=== PATIENT | female | born 1970 | race Caucasian/White ===

== ENCOUNTER → 2017-02-04 | Outpatient (CLI) | payer BC ==
--- NOTE | 2017-02-04 11:32 | XR ---
EXAMINATION TYPE: XR foot complete LT DATE OF EXAM: 02/04/2017 COMPARISON: NONE HISTORY: Left foot pain, swelling TECHNIQUE: Three-view left foot FINDINGS: Mild hallux valgus deformity is present. No acute fractures are evident. Joint spaces are p reserved. Soft tissues are within normal limits. Tiny plantar calcaneal heel spur is present. IMPRESSION: 1. No acute osseous abnormality.
== END | disposition home or self-care (01) ==
LOC: RADXRMAIN 10:41
PROVIDERS: ATTEND Family Medicine
DX: M79.672 Pain in left foot (principal)

== ENCOUNTER 2017-03-23 09:19 | Day surgery (SDC) | payer BC ==
[2017-03-18 09:25] VITALS: BMI 50.9
--- NOTE | 2017-03-23 08:59 | P.GSHP ---
History of Present Illness H&P Date: 03/23/17 CHIEF COMPLAINT: Colon screen HISTORY OF PRESENT ILLNESS: The patient is a 46-year-old female who presents for colon screen. Lower endoscopy was offered for further evaluation and management. PAST MEDICAL HISTORY: Please see list. PAST SURGICAL HISTORY: Please see list. MEDICATIONS: Please see list. ALLERGIES: Please see list. SOCIAL HISTORY: No illicit drug use FAMILY HISTORY: No reports of Crohn disease or ulcerative colitis. REVIEW OF ORGAN SYSTEMS: CONSTITUTIONAL: No reports of fevers or chills. PHYSICAL EXAM: VITAL SIGNS: Stable GENERAL: Well-developed pleasant in no acute distress. HEENT: No scleral icterus. Extraocular movements grossly intact. Moist buccal mucosa. NECK: Supple without lymphadenopathy. CHEST: Unlabored respirations. Equal bilateral excursions. CARDIOVASCULAR: Regular rate and rhythm. Distal 2+ pulses. ABDOMEN: Soft, nontender, nondistended. MUSCULOSKELETAL: No clubbing, cyanosis, or edema. ASSESSMENT: 1. Colon screen. PLAN: 1. Recommend proceeding with a lower endoscopy Past Medical History Past Medical History: GERD/Reflux, Hyperlipidemia, Hypertension, Sleep Apnea/ CPAP/BIPAP Additional Past Medical History / Comment(s): USES CPAP MACHINE History of Any Multi-Drug Resistant Organisms: None Reported Past Surgical History: Appendectomy, Hysterectomy, Tonsillectomy, Uterine Ablation Additional Past Surgical History / Comment(s): D&C. COLONOSCOPY Past Anesthesia/Blood Transfusion Reactions: No Reported Reaction Smoking Status: Former smoker - Past Family History Mother Additional Family Medical History / Comment(s): DIES FROM ANEURYSM Father Family Medical History: Pulmonary Embolus Medications and Allergies Home Medications Medication Instructions Recorded Confirmed Type Metoprolol Tartrate [Lopressor] 1 tab PO QAM 03/08/16 03/18/17 History Pravastatin Sodium [Pravachol] 80 mg PO HS 03/08/16 03/18/17 History amLODIPine [Norvasc] 1 tab PO QAM 03/08/16 03/18/17 History Triamterene-Hctz 37.5-25Mg 1 tab PO DAILY 03/10/16 03/18/17 History [Dyazide 37.5-25 Capsule] Omeprazole 40 mg PO DAILY #30 capsule. 03/23/16 03/18/17 Rx Allergies Allergy/AdvReac Type Severity Reaction Status Date / Time varenicline [From Chantix] Allergy Rash/Hives Verified 03/18/17 09:34
[~2017-03-23 09:19] MED LIST: LACTATED RINGERS 1,000 ML IV SCH; LIDOCAINE 1% 20 ML VIAL (10MG/ML) FOR IV START INTRADERMA PRN
[2017-03-23 10:24] VITALS: TEMP 97.8
[2017-03-23] MEDS ORDERED: LIDOCAINE 1% INJ 10MG/ML (20 ML MDV) ONE (10:52)
[2017-03-23] MEDS ORDERED: PROPOFOL 10 MG/ML 20 ML VIAL IV ONE (10:52)
--- NOTE | 2017-03-23 11:09 | P.PCN ---
Date of Procedure: 03/23/17 Description of Procedure: PREOPERATIVE DIAGNOSIS: Colonoscopy screening. Personal history of colon polyps. POSTOPERATIVE DIAGNOSIS: Colonoscopy screening. Personal history of colon polyps. External hemorrhoids, grade 2. OPERATION: Colonoscopy to the ileocecal valve and appendiceal orifice. SURGEON: Kalani Long MD. ANESTHESIA: MAC. INDICATIONS: The patient is a 63-year-old female who presents for colonoscopy screening. Last colonoscopy was 1 year ago with multiple high risk colon polyps removed. Benefits and risks were described and informed consent was obtained. DESCRIPTION OF PROCEDURE: The patient had undergone Gatorade, MiraLAX and Dulcolax prep. She had been brought into the operating room and laid in the left lateral decubitus position. After adequate intravenous sedation, the rectum was examined with 2% lidocaine jelly. External hemorrhoids were encountered. The rectal tone was within normal limits. No lesions were palpated in the rectal vault. An Olympus colonoscope was advanced until the ileocecal valve and appendiceal orifice were clearly viewed. The prep was excellent with clear visualization of the mucosal folds. The scope was removed with visualization of each mucosal fold. No large scattered diverticulosis was encountered. No colonic polyps were found. No evidence of focal colitis was found. Retroflexion of the scope demonstrated grade 1 internal hemorrhoids without active bleeding or inflammation. The colon was desufflated. The patient had tolerated the procedure well. Withdrawal time was over 6 minutes. FINDINGS: Internal hemorrhoids, grade 1 External prolapsed hemorrhoids. No arteriovenous malformations. No adenomatous polyps. No focal colitis. RECOMMENDATIONS: Lower endoscopy in 5 years, 2021 per screening guidelines. Plan - Discharge Summary New Discharge Prescriptions: No Action amLODIPine [Norvasc] 1 tab PO QAM Metoprolol Tartrate [Lopressor] 1 tab PO QAM Pravastatin Sodium [Pravachol] 80 mg PO HS Triamterene-Hctz 37.5-25Mg [Dyazide 37.5-25 Capsule] 1 tab PO DAILY Omeprazole 40 mg PO DAILY #30 capsule.dr Discharge Medication List Metoprolol Tartrate [Lopressor] 1 tab PO QAM 03/08/16 [History] Pravastatin Sodium [Pravachol] 80 mg PO HS 03/08/16 [History] amLODIPine [Norvasc] 1 tab PO QAM 03/08/16 [History] Triamterene-Hctz 37.5-25Mg [Dyazide 37.5-25 Capsule] 1 tab PO DAILY 03/10/16 [ History] Omeprazole 40 mg PO DAILY #30 capsule. 03/23/16 [Rx]
[2017-03-23 11:30] VITALS: BP 111/68; PULSE 62; RESP 18
== END 2017-03-23 11:41 | disposition home or self-care (01) ==
LOC: ORWHC2ENDO 09:19
PROVIDERS: ATTEND Surgery Plastic and Reconstructive Surgery
DX: Z12.11 Encounter for screening for malignant neoplasm of colon (principal); Z86.010 Personal history of colon polyps; K64.4 Residual hemorrhoidal skin tags; K64.0 First degree hemorrhoids; K21.9 Gastro-esophageal reflux disease without esophagitis; E78.5 Hyperlipidemia, unspecified; I10 Essential (primary) hypertension; G47.33 Obstructive sleep apnea (adult) (pediatric); Z99.89 Dependence on other enabling machines and devices; Z87.891 Personal history of nicotine dependence; E66.01 Morbid (severe) obesity due to excess calories; Z68.43 Body mass index [BMI] 50.0-59.9, adult; Z79.82 Long term (current) use of aspirin; Z79.899 Other long term (current) drug therapy; Z88.8 Allergy status to other drugs, medicaments and biological substances
CPT/HCPCS: J2001; J2704; G0105; 45378

== ENCOUNTER → 2017-12-23 | Outpatient (CLI) | payer BC ==
--- NOTE | 2017-12-27 13:31 | MM ---
Reason for exam: screening (asymptomatic). Last mammogram was performed 2 years and 2 months ago. History: Patient is postmenopausal. Physical Findings: A clinical breast exam by your physician is recommended on an annual basis and results should be correlated with mammographic findings. MG Screening Mammo w CAD Bilateral CC and MLO view(s) were taken. XCCL view(s) were taken of the left breast. Prior study comparison: October 10, 2015, mammogram. February 27, 2013, mammogram. There are scattered fibroglandular densities. There is no discrete abnormality. ASSESSMENT: Negative, BI-RAD 1 RECOMMENDATION: Routine screening mammogram of both breasts in 1 year.
== END | disposition home or self-care (01) ==
LOC: RADMAMWWP 10:19
PROVIDERS: ATTEND Family Medicine
DX: Z12.31 Encounter for screening mammogram for malignant neoplasm of breast (principal)
CPT/HCPCS: 77067

== ENCOUNTER → 2018-08-04 | Outpatient (CLI) | payer BC ==
--- NOTE | 2018-08-04 10:28 | XR ---
EXAMINATION TYPE: XR chest 2V DATE OF EXAM: 08/04/2018 COMPARISON: NONE HISTORY: Acute bronchitis per order. TECHNIQUE: Frontal and lateral views of the chest are obtained. FINDINGS: Slightly elevated left hemidiaphragm is seen. Central perihilar peribronchial cuffing is n oted. There is no focal air space opacity, pleural effusion, or pneumothorax seen. The cardiac silho uette size is within normal limits. The osseous structures are intact. IMPRESSION: No suspicious acute infiltrate. Central perihilar peribronchial cuffing is consistent wi th reactive airway disease possibly from a viral bronchiolitis. Correlate clinically.
== END | disposition home or self-care (01) ==
LOC: RADXRMAIN 10:02
PROVIDERS: ATTEND Family Medicine
DX: J20.9 Acute bronchitis, unspecified (principal)
CPT/HCPCS: 71046

== ENCOUNTER → 2019-06-19 | Outpatient (CLI) | payer BC ==
--- NOTE | 2019-06-20 07:36 | US ---
EXAMINATION TYPE: US mass soft tissue chest/back DATE OF EXAM: 06/19/2019 COMPARISON: NONE CLINICAL HISTORY: R07.81 Pleurodynia. Lump left mid flank TECHNIQUE/FINDINGS: Targeted grayscale and color imaging were performed of the left flank in the area of the palpable abnormality. Scanned within area of concern, left flank. At the palpable abnormality there is a hyperechoic vascul ar area noted = 1.9 x 1.0 x 2.1cm. This has somewhat ill-defined borders. IMPRESSION: Hyperechoic 2.1 cm mass within the left flank at the area of palpable abnormality. Given the hypervas cularity and ill-defined borders and enhanced MRI is recommended to assess for any abnormal enhanceme nt that would suggest liposarcoma rather than lipoma.
== END | disposition home or self-care (01) ==
LOC: RADUSWWP 16:11
PROVIDERS: ATTEND Family Medicine
DX: R22.2 Localized swelling, mass and lump, trunk (principal); R07.81 Pleurodynia

== ENCOUNTER → 2019-07-12 | Outpatient (CLI) | payer BC | END | disposition home or self-care (01) | LOC: RADMRIMAIN 15:56 | PROVIDERS: ATTEND Family Medicine | DX: Z53.9 Procedure and treatment not carried out, unspecified reason (principal) ==

== ENCOUNTER 2020-04-02 08:57 | Day surgery (SDC) | payer BC, OTHER ==
[2020-03-28 12:22] VITALS: BMI 51.7
--- NOTE | 2020-04-02 08:46 | P.GSHP ---
History of Present Illness H&P Date: 04/02/20 CHIEF COMPLAINT: GERD and colon screen HISTORY OF PRESENT ILLNESS: The patient is a 50-year-old female who presents with gastroesophageal reflux disease and need for colon screen. Upper and lower endoscopy were offered for further evaluation and management. PAST MEDICAL HISTORY: Please see list. PAST SURGICAL HISTORY: Please see list. MEDICATIONS: Please see list. ALLERGIES: Please see list. SOCIAL HISTORY: No illicit drug use FAMILY HISTORY: No reports of Crohn disease or ulcerative colitis. REVIEW OF ORGAN SYSTEMS: CONSTITUTIONAL: No reports of fevers or chills. GI: Denies any blood in stools or constipation. PHYSICAL EXAM: VITAL SIGNS: Stable GENERAL: Well-developed pleasant in no acute distress. HEENT: No scleral icterus. Extraocular movements grossly intact. Moist buccal mucosa. NECK: Supple without lymphadenopathy. CHEST: Unlabored respirations. Equal bilateral excursions. CARDIOVASCULAR: Regular rate and rhythm. Distal 2+ pulses. ABDOMEN: Soft, nondistended. MUSCULOSKELETAL: No clubbing, cyanosis, or edema. ASSESSMENT: 1. Gastroesophageal reflux disease 2. Colon screen. PLAN: 1. Recommend proceeding with an upper and lower endoscopy Past Medical History Past Medical History: GERD/Reflux, Hyperlipidemia, Hypertension, Musculoskeletal Disorder, Sleep Apnea/CPAP/BIPAP Additional Past Medical History / Comment(s): USES CPAP MACHINE, hx. numerous colon polyps History of Any Multi-Drug Resistant Organisms: None Reported Past Surgical History: Appendectomy, Hysterectomy, Tonsillectomy, Uterine Ablation Additional Past Surgical History / Comment(s): D&C. COLONOSCOPY Past Anesthesia/Blood Transfusion Reactions: No Reported Reaction Smoking Status: Former smoker - Past Family History Mother Additional Family Medical History / Comment(s): DIES FROM ANEURYSM Father Family Medical History: Pulmonary Embolus Medications and Allergies Home Medications Medication Instructions Recorded Confirmed Type Metoprolol Tartrate [Lopressor] 50 mg PO BID 03/08/16 03/28/20 History Pravastatin Sodium [Pravachol] 80 mg PO HS 03/08/16 03/28/20 History amLODIPine [Norvasc] 10 mg PO QAM 03/08/16 03/28/20 History Omeprazole 40 mg PO DAILY #30 capsule. 03/23/16 03/28/20 Rx Cholecalciferol [Vitamin D3 (25 1,000 unit PO DAILY 03/28/20 03/28/20 History Mcg = 1000 Iu)] Psyllium Husk [Metamucil] 0.4 gm PO DAILY 03/28/20 03/28/20 History Vitamin B Complex 1 each PO DAILY 03/28/20 03/28/20 History Allergies Allergy/AdvReac Type Severity Reaction Status Date / Time varenicline [From Chantix] Allergy Rash/Hives Verified 03/28/20 11:56
[~2020-04-02 08:57] MED LIST changes: -LIDOCAINE 1% 20 ML VIAL (10MG/ML) FOR IV START INTRADERMA PRN; +MIDAZOLAM 2 MG/2 ML VIAL IV PRN; +ONDANSETRON 4 MG/2 ML VIAL IVP PRN
[2020-04-02] MEDS ORDERED: LACTATED RINGERS 1,000 ML IV ONE (09:25)
[2020-04-02 09:35] VITALS: TEMP 97.8
[2020-04-02] MEDS ORDERED: LIDOCAINE 1% (10MG/ML) FOR IV START INTRADERMA ONE (09:37)
[2020-04-02] MEDS ORDERED: GLYCOPYRROLATE 0.2 MG/ML 2 ML VIAL ONE (09:45)
[2020-04-02] MEDS ORDERED: LIDOCAINE 1% INJ 10MG/ML (20 ML MDV) ONE (09:45)
[2020-04-02] MEDS ORDERED: PROPOFOL 10 MG/ML 20 ML VIAL IV ONE (09:45)
[2020-04-02] MEDS ORDERED: KETAMINE 10 MG/ML 20 ML VIAL ONE (09:45)
--- NOTE | 2020-04-02 10:12 | P.PCN ---
Date of Procedure: 04/02/20 Description of Procedure: PREOPERATIVE DIAGNOSIS: Gastroesophageal reflux disease. Morbid obesity. POSTOPERATIVE DIAGNOSIS: Morbid obesity. Gastritis. Gastroesophageal reflux disease. Diaphragmatic hiatal hernia OPERATION: Esophagogastroduodenoscopy with biopsies along antrum. SURGEON: Kalani Long MD ANESTHESIA: MAC. INDICATIONS: The patient is a 50-year-old female who presents with a history of reflux disease. Benefits and risks of the procedure were described. Informed consent was obtained. DESCRIPTION: The patient was brought into the endoscopy suite and laid in the left lateral decubitus position. An Olympus gastroscope was passed along the posterior oropharynx down to the distal esophagus where the squamocolumnar junction was encountered at 40 cm from the incisors. The stomach was entered and no bile reflux was found. Additional findings are listed below. Biopsies with cold f orceps were obtained of the antrum. The first through third portion of the duodenum was examined. Retroflexion of the scope confirmed Hill grade 4 lower esophageal valve. The squamocolumnar junction demonstrated LA grade B erosive esophagitis. The stomach was desufflated. The patient tolerated the procedure well. FINDINGS: Squamocolumnar junction 40 cm from the incisors. Diaphragmatic hiatus at 45 cm. Hiatal hernia, 5 cm Hill grade 4 lower esophageal valve. LA grade B erosive esophagitis. Active duodenitis. Chronic gastritis RECOMMENDATIONS: Upper endoscopy as needed.
--- NOTE | 2020-04-02 10:19 | P.PCN ---
Date of Procedure: 04/02/20 Description of Procedure: PREOPERATIVE DIAGNOSIS: Colonoscopy screening POSTOPERATIVE DIAGNOSIS: Tubular adenoma transverse colon Sigmoid diverticulosis Internal hemorrhoids, grade 2 OPERATION: Colonoscopy to the ileocecal valve and appendiceal orifice, cecum Colonoscopy with hot snare polypectomy Colonoscopy with cold forceps biopsies SURGEON: Kalani Long MD. ANESTHESIA: MAC. INDICATIONS: The patient is an 50-year-old female who presents . for colonoscopy screening. Benefits and risks were described and informed consent was obtained. DESCRIPTION OF PROCEDURE: The patient had undergone Suprep. She had been brought into the operating room and laid in the left lateral decubitus position. After adequate intravenous sedation, the rectum was examined with 2% lidocaine jelly. The prostate was unremarkable. External hemorrhoids were encountered. The rectal tone was within normal limits. No lesions were palpated in the rectal vault. An Olympus colonoscope was advanced until the cecum, ileocecal valve and appendiceal orifice were clearly viewed. The prep was excellent. Sigmoid diverticulosis was encountered. Transverse colon polyp was snare polypectomy. No evidence of focal colitis was found. Retroflexion of the scope demonstrated grade 2 internal hemorrhoids without active bleeding or inflammation. The colon was desufflated. The patient had tolerated the procedure well. Withdrawal time was over 6 minutes. FINDINGS: Aronchick preparation quality scale 1 (1-5) Internal hemorrhoids, grade 3 External hemorrhoids, grade 3. No arteriovenous malformations. Sigmoid diverticulosis Removal of 1 polyp: - Snare polypectomy proximal transverse colon, 8 mm tubulovillous adenoma polyp. No focal colitis. RECOMMENDATIONS: Repeat colonoscopy 2 years, 2021 Plan - Discharge Summary Discharge Rx Participant: No New Discharge Prescriptions: Continue amLODIPine [Norvasc] 10 mg PO QAM Metoprolol Tartrate [Lopressor] 50 mg PO BID Pravastatin Sodium [Pravachol] 80 mg PO HS Omeprazole 40 mg PO DAILY #30 capsule. Cholecalciferol [Vitamin D3 (25 Mcg = 1000 Iu)] 1,000 unit PO DAILY Vitamin B Complex 1 each PO DAILY Psyllium Husk [Metamucil] 0.4 gm PO DAILY Discharge Medication List Metoprolol Tartrate [Lopressor] 50 mg PO BID 03/08/16 [History] Pravastatin Sodium [Pravachol] 80 mg PO HS 03/08/16 [History] amLODIPine [Norvasc] 10 mg PO QAM 03/08/16 [History] Omeprazole 40 mg PO DAILY #30 capsule. 03/23/16 [Rx] Cholecalciferol [Vitamin D3 (25 Mcg = 1000 Iu)] 1,000 unit PO DAILY 03/28/20 [History] Psyllium Husk [Metamucil] 0.4 gm PO DAILY 03/28/20 [History] Vitamin B Complex 1 each PO DAILY 03/28/20 [History] Follow up Appointment(s)/Referral(s): Kalani Long MD [STAFF PHYSICIAN] - 04/15/20 Patient Instructions/Handouts: Colorectal Polyps (GEN), Diverticulosis Diet (GEN), Diverticulosis (ED), Hemorrhoids (DC) Activity/Diet/Wound Care/Special Instructions: Repeat colonoscopy 2 years, 2021 Discharge Disposition: HOME SELF-CARE
[2020-04-02 11:27] VITALS: BP 131/68; PULSE 88; RESP 16
== END 2020-04-02 11:03 | disposition home or self-care (01) ==
LOC: ORWHC2ENDO 08:57
PROVIDERS: ATTEND Surgery Plastic and Reconstructive Surgery
DX: Z12.11 Encounter for screening for malignant neoplasm of colon (principal); K63.5 Polyp of colon; K57.30 Diverticulosis of large intestine without perforation or abscess without bleeding; K29.50 Unspecified chronic gastritis without bleeding; K64.1 Second degree hemorrhoids; K64.4 Residual hemorrhoidal skin tags; E66.01 Morbid (severe) obesity due to excess calories; K44.9 Diaphragmatic hernia without obstruction or gangrene; K21.00 Gastro-esophageal reflux disease with esophagitis, without bleeding; K22.10 Ulcer of esophagus without bleeding; K29.80 Duodenitis without bleeding; I10 Essential (primary) hypertension; E78.5 Hyperlipidemia, unspecified; G47.33 Obstructive sleep apnea (adult) (pediatric); Z79.899 Other long term (current) drug therapy; Z88.8 Allergy status to other drugs, medicaments and biological substances; Z99.89 Dependence on other enabling machines and devices; Z87.891 Personal history of nicotine dependence; Z90.710 Acquired absence of both cervix and uterus; Z90.49 Acquired absence of other specified parts of digestive tract; Z98.890 Other specified postprocedural states; Z86.010 Personal history of colon polyps; Z82.49 Family history of ischemic heart disease and other diseases of the circulatory system; Z68.43 Body mass index [BMI] 50.0-59.9, adult
CPT/HCPCS: 88305; 45385; 43239; J2001; J2704

== ENCOUNTER 2020-04-21 06:21 | Day surgery (SDC) | payer BC, OTHER ==
[2020-04-18 09:22] VITALS: BMI 51.7
--- NOTE | 2020-04-21 05:04 | P.GSHP ---
History of Present Illness H&P Date: 04/21/20 CHIEF COMPLAINT: Back mass HISTORY OF PRESENT ILLNESS: The patient is a 50 year-old female with history of mass along the left upper back. She presents today for surgical excision. PAST MEDICAL HISTORY: Please see list. PAST SURGICAL HISTORY: Please see list. MEDICATIONS: Please see list. ALLERGIES: Please see list. SOCIAL HISTORY: Please see list. FAMILY HISTORY: No reports of Crohn disease or ulcerative colitis. REVIEW OF ORGAN SYSTEMS: CONSTITUTIONAL: No reports of fevers or chills. GI: Denies any blood in stools or constipation. PHYSICAL EXAM: VITAL SIGNS: Stable Musculoskeletal: No clubbing cyanosis or edema SKIN: Left upper back lesion 3 cm GENERAL: Well developed and in no acute distress. Pleasant. HEENT: No sclera icterus. Extraocular movements grossly intact. Moist buccal mucosa. Head is atraumatic, normocephalic. Hears conversational speech. No nasal drainage. NECK: Supple without lymphadenopathy. No JV distention. CHEST: Non-labored respirations and equal bilateral excursions. CARDIOVASCULAR: Regular rate and rhythm. Palpable 2+ radial pulses. ABDOMEN: Soft. Non-tender. Nondistended. NEUROLOGIC: No focal or lateralizing signs. PSYCH: Appropriate affect. Alert and oriented to person, place and time. ASSESSMENT: 1. Left upper back mass PLAN: 1. Will proceed of excision of subcutaneous tumor along the back. 2. DVT prophylaxis. 3. Antibiotic prophylaxis. 4. Time of recovery, at least one week. Past Medical History Past Medical History: GERD/Reflux, Hyperlipidemia, Hypertension, Musculoskeletal Disorder, Sleep Apnea/CPAP/BIPAP Additional Past Medical History / Comment(s): USES CPAP MACHINE, hx. numerous colon polyps History of Any Multi-Drug Resistant Organisms: None Reported Past Surgical History: Appendectomy, Hysterectomy, Tonsillectomy, Uterine Ablation Additional Past Surgical History / Comment(s): D&C. COLONOSCOPY/EGD Past Anesthesia/Blood Transfusion Reactions: No Reported Reaction Smoking Status: Former smoker - Past Family History Mother Additional Family Medical History / Comment(s): DIES FROM ANEURYSM Father Family Medical History: Pulmonary Embolus Medications and Allergies Home Medications Medication Instructions Recorded Confirmed Type Metoprolol Tartrate [Lopressor] 50 mg PO BID 03/08/16 04/18/20 History Pravastatin Sodium [Pravachol] 80 mg PO HS 03/08/16 04/18/20 History amLODIPine [Norvasc] 10 mg PO QAM 03/08/16 04/18/20 History Omeprazole 40 mg PO DAILY #30 capsule. 03/23/16 04/18/20 Rx Cholecalciferol [Vitamin D3 (25 1,000 unit PO DAILY 03/28/20 04/18/20 History Mcg = 1000 Iu)] Psyllium Husk [Metamucil] 0.4 gm PO DAILY 03/28/20 04/18/20 History Vitamin B Complex 1 each PO DAILY 03/28/20 04/18/20 History Allergies Allergy/AdvReac Type Severity Reaction Status Date / Time varenicline [From Chantix] Allergy Rash/Hives Verified 04/18/20 09:14
[~2020-04-21 06:21] MED LIST changes: +ACETAMINOPHEN TAB 500 MG TAB PO STA; +GABAPENTIN 300 MG CAP PO STA; +HEPARIN SODIUM,PORCINE 5,000 UNIT/ML 1 ML VIAL SQ STA; +LIDOCAINE 1% (10MG/ML) FOR IV START INTRADERMA PRN; -MIDAZOLAM 2 MG/2 ML VIAL IV PRN; -ONDANSETRON 4 MG/2 ML VIAL IVP PRN; +Pre Op ABX Message 1 EACH MISC MISCELLANE ONE
[2020-04-21] MEDS ORDERED: ceFAZolin 3 GM in SODIUM CHLORIDE 0.9% 100 ML IVPB PRN (07:00)
[2020-04-21] MEDS ORDERED: ONDANSETRON 4 MG/2 ML VIAL ONE (07:15)
[2020-04-21] MEDS ORDERED: LACTATED RINGERS 1,000 ML IV ONE (07:17)
[2020-04-21] MEDS ORDERED: ONDANSETRON 4 MG/2 ML VIAL IVP ONE (07:18)
[2020-04-21] MEDS ORDERED: DEXAMETHASONE SOD PHOSPHATE 4 MG/ML 1 ML VIAL IVP ONE (07:19)
[2020-04-21] MEDS ORDERED: PROPOFOL 10 MG/ML 20 ML VIAL IV ONE (07:28)
[2020-04-21] MEDS ORDERED: SUCCINYLCHOLINE CHLORIDE 100 MG/5 ML SYR IV ONE (07:28)
[2020-04-21] MEDS ORDERED: LIDOCAINE 1% INJ 10MG/ML (20 ML MDV) ONE (07:28)
[2020-04-21] MEDS ORDERED: MIDAZOLAM 2 MG/2 ML VIAL ONE (07:28)
[2020-04-21] MEDS ORDERED: fentaNYL (PF) 50 MCG/ML 2 ML AMP ONE (07:28)
[2020-04-21] MEDS ORDERED: BUPIVACAINE (PF) 0.25% 30 ML VIAL SQ ONE (08:11)
[2020-04-21 08:53] VITALS: TEMP 98.4
[2020-04-21 09:07] VITALS: RESP 16
--- NOTE | 2020-04-21 09:09 | P.OP ---
Date of Procedure: 04/21/20 Description of Procedure: SURGEON: KALANI LONG MD MUNITIONS WORKER: None. PREOPERATIVE DIAGNOSES: 1. Left upper/flank back tumor 2. Obstructive sleep apnea 3. Morbid obesity due to excess calories, BMI 53.6 4. Hypertensive heart disease POSTOPERATIVE DIAGNOSES: 1. Deep subfascial/submuscular left upper back tumor, 8 x 6 cm 2. Obstructive sleep apnea 3. Morbid obesity due to excess calories, BMI 53.6 4. Hypertensive heart disease PROCEDURES PERFORMED: 1. Excision of deep subfascial/intra-muscular left upper/flank back mass, 8 x 6 cm 2. Complex four layer closure left upper back incision, 9-cm Anesthesia: GETA, local Estimated Blood Loss (ml): 20 Pathology: other (back mass) Condition: stable Disposition: same day COMPLICATIONS: None. Operative Findings: 1. Excision of deep subfascial lipoma left upper back tumor 8 x 6 cm INDICATIONS: The patient is a 50-year-old female who presents with symptomatic left upper back/flank tumor. Benefits and risks of surgical intervention were described including bleeding, infection, seroma, pain and recurrence. Informed consent was obtained. DESCRIPTION OR PROCEDURE: In the preoperative area, the area of concern was marked with indelible marker. Patient was brought into the operating room. After general induction, she was positioned in right lateral decubitus position. The back was prepped and draped in a standard sterile fashion with ChloraPrep. Timeout protocol was confirmed with the surgical team regarding the patient's name, procedure to be performed including preoperative medications. DVT prophylaxis was confirmed. A field block was placed of the left lower back. An transverse incision using #10 blade was made along the marking into the dermis and subcutaneous tissue. Electro-Bovie cautery was used to enter deep into the fascia and found intramuscular where a fibrous fatty multilobulated tumor was removed in total of 8 x 6 cm. 0 Vicryl for the fascia and deep subcutaneous tissue followed by 3-0 Vicryl for the subcutaneous tissue was placed in interrupted fashion. 4-0 Monocryl in a running subcuticular fashion was placed along the dermis. The skin was cleansed and Exofin tape with liquid was applied for a four layer closure. The incision was covered with Optifoam dressing. At the end of the procedure, needle, sponge, and instrument count was verified correct by surgical asst. The patient tolerated the procedure well. Plan - Discharge Summary Discharge Rx Participant: No New Discharge Prescriptions: New Ibuprofen 800 mg PO Q8HR PRN #30 tablet PRN Reason: Pain Acetaminophen Tab [Tylenol Tab] 1,000 mg PO Q6HR PRN #30 tablet PRN Reason: Pain Continue amLODIPine [Norvasc] 10 mg PO QAM Metoprolol Tartrate [Lopressor] 50 mg PO BID Pravastatin Sodium [Pravachol] 80 mg PO HS Omeprazole 40 mg PO DAILY #30 capsule. Cholecalciferol [Vitamin D3 (25 Mcg = 1000 Iu)] 1,000 unit PO DAILY Vitamin B Complex 1 each PO DAILY Psyllium Husk [Metamucil] 0.4 gm PO DAILY Discharge Medication List Metoprolol Tartrate [Lopressor] 50 mg PO BID 03/08/16 [History] Pravastatin Sodium [Pravachol] 80 mg PO HS 03/08/16 [History] amLODIPine [Norvasc] 10 mg PO QAM 03/08/16 [History] Omeprazole 40 mg PO DAILY #30 capsule. 03/23/16 [Rx] Cholecalciferol [Vitamin D3 (25 Mcg = 1000 Iu)] 1,000 unit PO DAILY 03/28/20 [History] Psyllium Husk [Metamucil] 0.4 gm PO DAILY 03/28/20 [History] Vitamin B Complex 1 each PO DAILY 03/28/20 [History] Acetaminophen Tab [Tylenol Tab] 1,000 mg PO Q6HR PRN #30 tablet 04/21/20 [Rx] Ibuprofen 800 mg PO Q8HR PRN #30 tablet 04/21/20 [Rx] Follow up Appointment(s)/Referral(s): Kalani Long MD [STAFF PHYSICIAN] - 04/29/20 Patient Instructions/Handouts: Excision of Skin Lesion (DC), Abdominal Binder (DC) Activity/Diet/Wound Care/Special Instructions: NO WIDE MOTIONS OF THE SHOULDERS/ARMS FOR 1 WEEK, until Apr 28. NO BENDING AT THE HIPS WHILE SITTING NO EXTREME STRETCHING OF THE BACK See instructions on dressing. DO NOT REMOVE DRESSING. No lifting over 10 pounds in 2 weeks, May 05September shower. No bath tub soaks for two weeks, May 05 Diet as tolerated. Notify surgeon for temperature over 101.5, increased redness along incision, increased pain along surgical site. Discharge Disposition: HOME SELF-CARE
[2020-04-21 10:49] VITALS: BP 133/75; PULSE 73
== END 2020-04-21 11:19 | disposition home or self-care (01) ==
LOC: OR 06:21
PROVIDERS: ATTEND Surgery Plastic and Reconstructive Surgery
DX: D17.1 Benign lipomatous neoplasm of skin and subcutaneous tissue of trunk (principal); I11.9 Hypertensive heart disease without heart failure; E66.01 Morbid (severe) obesity due to excess calories; E78.5 Hyperlipidemia, unspecified; K21.9 Gastro-esophageal reflux disease without esophagitis; G47.33 Obstructive sleep apnea (adult) (pediatric); Z68.43 Body mass index [BMI] 50.0-59.9, adult; Z79.899 Other long term (current) drug therapy; Z99.89 Dependence on other enabling machines and devices; Z86.010 Personal history of colon polyps; Z90.710 Acquired absence of both cervix and uterus; Z90.49 Acquired absence of other specified parts of digestive tract; Z98.890 Other specified postprocedural states; Z87.891 Personal history of nicotine dependence; Z82.49 Family history of ischemic heart disease and other diseases of the circulatory system; Z88.8 Allergy status to other drugs, medicaments and biological substances; Z86.73 Personal history of transient ischemic attack (TIA), and cerebral infarction without residual deficits
CPT/HCPCS: 21933; 88304; J2250; J1644; J1100; J0690; J2405; J2001; J3010; J0330; J2704

== ENCOUNTER → 2020-05-27 | Outpatient (CLI) | payer OTHER ==
--- NOTE | 2020-05-28 11:27 | MM ---
Reason for exam: screening (asymptomatic). Last mammogram was performed 2 years and 5 months ago. History: Patient is postmenopausal. Physical Findings: A clinical breast exam by your physician is recommended on an annual basis and results should be correlated with mammographic findings. MG Screening Mammo w CAD Bilateral CC, MLO, and XCCL view(s) were taken. Prior study comparison: December 23, 2017, bilateral MG screening mammo w CAD. October 10, 2015, mammogram. There are scattered fibroglandular densities. Finding: There are typically benign round calcifications in both breasts. There is no discrete abnormality. ASSESSMENT: Benign, BI-RAD 2 RECOMMENDATION: Routine screening mammogram of both breasts in 1 year.
== END | disposition home or self-care (01) ==
LOC: RADMAMWWP 11:44
PROVIDERS: ATTEND Family Medicine
DX: Z12.31 Encounter for screening mammogram for malignant neoplasm of breast (principal)
CPT/HCPCS: 77067

== ENCOUNTER → 2021-08-03 | Outpatient (CLI) | payer OTHER ==
[2021-08-03 13:03] LABS: INR 0.9 (<1.2); Partial Thromboplastin Time 26.2 sec (22.0-30.0); Prothrombin Time 10.4 sec (9.0-12.0)
[2021-08-03 18:07] LABS: HCT 33.4 % (37.2-46.3); HGB 10.4 g/dL (12.0-15.0); MCH 27.7 pg (27.0-32.0); MCHC 31.1 g/dL (32.0-37.0); MCV 89.1 fL (80.0-97.0); Mean Platelet Volume 10.6 fL (9.5-12.2); NRBC Per 100 WBC 0 /100 WBCS (0.0-0.0); Platelet Count 276 X 10*3/uL (140-440); RBC 3.75 X 10*6/uL (4.10-5.20); RDW 13.3 % (11.5-14.5); WBC 5.39 X 10*3/uL (4.50-10.00)
[2021-08-03 18:24] LABS: African American GFR (CKD) 134.3 (60.0-200.0); Albumin 4.5 g/dL (3.8-4.9); Albumin/Globulin Ratio 2.2 (1.60-3.17); Anion Gap 14.3 mmol/L (10.00-18.00); BUN/Creat Ratio 34.16 Ratio (12.00-20.00); Blood Urea Nitrogen 15.1 mg/dL (9.0-27.0); Calcium 9.4 mg/dL (8.7-10.3); Carbon Dioxide 22.9 mmol/L (20.0-27.5); Non-African American GFR(CKD) 115.9 (60.0-200.0); Potassium 4.3 mmol/L (3.5-5.5); Total Bilirubin 0.2 mg/dL (0.30-1.20); Total Protein 6.5 g/dL (6.2-8.2)
[2021-08-03 20:48] LABS: Appearance,Urine Cloudy (Clear); Bacteria,Urine 3+ /HPF (None Seen); Bilirubin,Urine Negative (Negative); Blood,Urine Negative (Negative); Calcium Oxalate Crystals,Urine Present /LPF (None Seen); Color,Urine Yellow (Yellow); Ketones,Urine Negative (Negative); Leukocyte Esterase,Urine Small (Negative); Nitrite,Urine Negative (Negative); Protein,Urine Negative (Negative); Specific Gravity,Urine 1.025 (1.001-1.030); Urobilinogen,Urine 0.2 (0.2,1.0); WBC,Urine 21-50 /HPF (0-5)
== END | disposition home or self-care (01) ==
LOC: LABWHC1 10:12
PROVIDERS: ATTEND Orthopaedic Surgery
DX: Z01.812 Encounter for preprocedural laboratory examination (principal)
CPT/HCPCS: 36415; 80053; 81001; 85027; 85610; 85730; 87070; 93005

== ENCOUNTER 2021-08-14 06:28 | Observation (INO) | payer OTHER ==
[2021-08-10 16:23] VITALS: BMI 37.0
[~2021-08-14 06:28] MED LIST changes: +ACETAMINOPHEN TAB 500 MG TAB PO PRN; -ACETAMINOPHEN TAB 500 MG TAB PO STA; +DEXAMETHASONE SOD PHOSPHATE 10 MG/ML 1 ML VIAL IV PRN; +DEXAMETHASONE SOD PHOSPHATE 4 MG/ML 1 ML VIAL IV ONE; +DOCUSATE 100 MG CAP PO PRN; +FAMOTIDINE 20 MG/2 ML VIAL IVP PRN; -GABAPENTIN 300 MG CAP PO STA; -HEPARIN SODIUM,PORCINE 5,000 UNIT/ML 1 ML VIAL SQ STA; +HYDROmorphone 0.5 MG/0.5 ML SYRINGE IVP PRN; +KETOROLAC 15 MG/ML 1 ML VIAL IVP PRN; -LACTATED RINGERS 1,000 ML IV SCH; +MIDAZOLAM 2 MG/2 ML VIAL IV PRN; +ONDANSETRON 4 MG/2 ML VIAL IVP ONE; +ONDANSETRON 4 MG/2 ML VIAL IVP PRN; -Pre Op ABX Message 1 EACH MISC MISCELLANE ONE; +TRANEXAMIC ACID IN NACL,ISO-OS 1,000 MG in SALINE 1 100ML.BAG IVPB PRN; +oxyCODONE ER 10 MG TAB.ER.12H PO PRN
[2021-08-14] MEDS: LACTATED RINGERS 1,000 ML IV SCH (07:20)
[2021-08-14] MEDS ORDERED: ROPIVACAINE/EPI/CLONIDINE/KET 50 ML SYRINGE MISCELLANE PRN (07:23)
[2021-08-14] MEDS ORDERED: fentaNYL (PF) 50 MCG/ML 2 ML AMP ONE (07:39)
[2021-08-14] MEDS ORDERED: HEPARIN SODIUM,PORCINE 10,000 UNIT/ML 1 ML VIAL ONE (07:39)
[2021-08-14] MEDS ORDERED: SODIUM CHLORIDE 0.9% IRRIG 1,000 ML BTL IRRIGATION ONE (07:39)
[2021-08-14] MEDS ORDERED: NEOSTIGMINE 1 MG/ML 10 ML VIAL ONE (07:39)
[2021-08-14] MEDS ORDERED: HYDROmorphone (PF) 1 MG/ML ONE (07:39)
[2021-08-14] MEDS ORDERED: TRANEXAMIC ACID IN NACL,ISO-OS 1,000 MG/100 ML BAG ONE (07:39)
[2021-08-14] MEDS ORDERED: ROCURONIUM 10 MG/ML (5 ML VIAL) IV ONE (07:39)
[2021-08-14] MEDS ORDERED: SUCCINYLCHOLINE CHLORIDE 100 MG/5 ML SYR IV ONE (07:39)
[2021-08-14] MEDS ORDERED: WATER FOR INJECTION, STERILE 10 ML VIAL IV ONE (07:39)
[2021-08-14] MEDS ORDERED: PROPOFOL 10 MG/ML 20 ML VIAL IV ONE (07:39)
[2021-08-14] MEDS ORDERED: GLYCOPYRROLATE 0.2 MG/ML 2 ML VIAL ONE (07:39)
[2021-08-14] MEDS ORDERED: MIDAZOLAM 2 MG/2 ML VIAL ONE (07:39)
[2021-08-14] MEDS: ROPIVACAINE/EPI/CLONIDINE/KET 50 ML SYRINGE MISCELLANE PRN ×2 (08:45→09:18)
[2021-08-14] MEDS ORDERED: TRANEXAMIC ACID 1,000 MG/10 ML VIAL MISCELLANE STA (08:52)
[2021-08-14] MEDS ORDERED: LACTATED RINGERS 1,000 ML IV ONE ×2 (09:00→10:15)
--- NOTE | 2021-08-14 10:04 | FL ---
EXAMINATION TYPE: FL guidance operating room, XR Hip Limited RT DATE OF EXAM: 08/14/2021 CLINICAL HISTORY: Right hip pain and osteoarthritis. TECHNIQUE: Fluoroscopy. Intraoperative limited views right hip. COMPARISON: None. FINDINGS: Fluoroscopic guidance was provided during right hip replacement procedure performed by Dr. Franklin. A total of 42 seconds of fluoroscopic time was utilized during the procedure and 8 spot i mages was acquired. Images acquired show bony resection and eventual placement of metallic hardware. Position appears sat isfactory on the intraoperative images obtained. IMPRESSION: As Above.
--- NOTE | 2021-08-14 10:08 | P.OP ---
Date of Procedure: 08/14/21 Preoperative Diagnosis: 1. Severe right hip osteoarthritis 2. BMI 38 3. Preoperative anemia Postoperative Diagnosis: same Procedure(s) Performed: Right direct anterior total hip arthroplasty Implants: 1. [place] Trident II 52 cup 2. Levi Accolade II size 5, 132-deg femoral stem 3. Biolox Delta 36, +0 head Anesthesia: GETA Surgeon: Diallo Franklin Client Resource Specialist #1: Amelie Zheng Estimated Blood Loss (ml): 500 IV fluids (ml): 1,200 Pathology: none sent Condition: stable Disposition: PACU Indications for Procedure: I had a long discussion with the patient in the office on the potential risks an d complications of an elective total hip replacement through a direct anterior approach. Risks discussed include, but are certainly not limited to, risks from anesthesia, superficial infection requiring local wound care or antibiotics, deep amaris-prosthetic joint infection and the treatment required to eradicate infection, intraoperative fracture, postoperative periprosthetic fracture, damage to local blood vessels or nerves particularly the lateral femoral cutaneous nerve, delayed wound healing requiring local wound care or possibly surgical debridement, hip dislocation, leg length discrepancy, soft tissue irritation around the total hip implant such as iliopsoas tendinitis or trochanteric bursitis, wear and osteolysis from the implants, squeaking or audible noises, groin pain, thigh pain, heterotopic ossification, stiffness, aseptic loosening of the implants, dissatisfaction with surgical outcome, need for revision surgery, DVT, PE, swelling of the operative extremity, acute coronary event, stroke, failure to thrive, and possibly loss of life or limb. The patient understands that while these are the most common complications after an elective hip replacement there are certainly other less common complications possible. They were given ample time to ask questions regarding the potential complications of a hip replacement. Following our discussion the patient provided their verbal and written consent to go forward with an elective total hip replacement. Operative Findings: Prior to surgery the patient reported feeling short on her right leg. Prior to moving onto the hand table her right leg felt close to 1 cm short compared to the left. She had severe osteoarthritis and an ankylosed hip. Description of Procedure: The patient was identified in the preoperative holding area and the correct hip was marked with my initials. I reviewed the procedure and consent with the patient. All of their questions were answered. The patient was then brought back into the operating room by anesthesia. While on the [facility] anesthesia was administered by the anesthesia team. Preoperative antibiotics and tranexamic acid were also given. After the patient was under anesthesia I examined their ankles to determine their preoperative leg length discrepancy. The skin over the anterior aspect of the hip was shaved to remove hair over the site of planned incision. Both feet and ankles were padded with webril and boots for the Lando were applied. The patient was then carefully transferred onto the Lando table. A perineal post was immediately placed. The arms were placed on arm holders and were well-padded. Both boots were secured to the spars on the Lando table. The patient was positioned so that the pelvis was centered over the post. Nonsterile drapes were applied. A timeout was performed identifying the correct patient, operative extremity, and procedure. At this point fluoroscopy was brought in to take preoperative images of the pelvis and operative hip. Using the standing AP pelvis from the office as a template, a comparable image was obtained with fluoroscopy. A metallic bar was used to create a bi-ischial line for use as a reference to leg length adjustments during the procedure. Global offset was also measured on both the operative and nonoperative leg. Fluoroscopy was then brought out and a pre-scrub using a chlorhexidine scrub brush was performed. The operative limb was then prepped and draped in the standard sterile fashion. An anterior longitudinal incision was made lateral and distal to the ASIS. The skin and subcutaneous tissues were incised sharply. The underlying tensor fascia was identified and incised in its midportion. The fascia was dissected free from the underlying muscle and the muscle belly was retracted. A blunt tipped cobra retractor was placed over the superior neck under the muscle fibers of the gluteus minimus. The deep enveloping fascia of the tensor was incised. The anterior leash of vessels were then identified and cauterized. The fascia between the rectus and the capsule was then incised and the pre-capsular fat was excised. A second Cobra was placed inferior to the neck. The interval between the rectus and iliocapsularis and the hip capsule was developed and a retractor was placed carefully over the anterior rim of the acetabulum. A T-shaped anterior capsulotomy was performed. The superior capsular leaflet was left in place in the inferior capsular flap was excised. The Cobra retractors were placed intracapsularly. We then made a femoral neck osteotomy according to preoperative and intraoperative templating and confirmed the level of the osteotomy using fluoroscopic imaging. The femoral head was removed, passed off to the back table, and sized. The superior capsular flap was excised. Retractors were placed circumferentially exposing the acetabulum. We then circumferentially debrided the acetabulum free of labrum and osteophytes. The pulvinar was removed to fully visualize the cotyloid fossa. We then sequentially reamed to achieve peripheral fit and excellent bleeding subchondral bone. The socket was thoroughly irrigated. The acetabular component was impacted into the appropriate position using fluoroscopy to guide version, inclination, and depth of insertion taking care to have a comparable image of th e AP pelvis to the standing image taken in the office. An excellent press-fit was achieved and final position was confirmed using fluoroscopy. The press fit was augmented with bony cancellus dome screws. The liner was then impacted into the socket. Attention was then turned to the femur. The remnant dorsal lateral capsule was excised. The short external rotators were visible and protected. A bone hook was used to confirm appropriate translation of the trochanter away from the acetabulum. The leg was then extended and adducted and the bone hook was used to elevate the femur for broaching. A box osteotome and blunt tipped canal sound was then utilized to gain access to the femoral canal. We then sequentially broached the femur in appropriate anteversion until excellent torsional stability was achieved. The neck cut was brought flush to the trial broach with a calcar planar. A trial neck and head were then placed onto the broach and the hip was atraumatically reduced under direct visualization. External rotation to 90 was performed to assess stability. Fluoroscopy was brought in. An AP and lateral fluoroscopic image of the proximal femur was obtained to assess position and fill of the trial broach. An AP of the pelvis was then obtained and matched to the preoperative image taken. A bi-ischial bar was then placed and measurements were taken to assess changes in length and offset. The hip was then carefully dislocated, the proximal femur was exposed, and the trial implants were removed. The wound and proximal femur was thoroughly irrigated using sterile saline and pulsatile lavage. The final femoral implant was dispensed and gently tapped into place generating an excellent press-fit. The trunnion was cleansed and the final head was tapped into place to engage the Rodney taper. The acetabulum was irrigated and visualized to be free of debris. The hip was carefully reduced. Stability was checked clinically with external rotation to 90 and there was no evidence of instability. Final fluoroscopic images were taken. The wound was then thoroughly irrigated and soaked with a dilute Betadine rinse for 3 minutes. 3 L of sterile saline was irrigated through the wound using pulsatile lavage. Local anesthetic cocktail was injected into the soft tissues around the surgical field. A deep drain was placed. The wound was then closed in layers. A s terile dressing was placed over the surgical incision and drain site. The drapes were taken down and the patient was carefully transferred off of the Lando table. Following removal of the boots the leg lengths felt acceptable. The patient was then taken to recovery room having tolerated the procedure well. Amelie Zheng PA-C was required as a skilled digital marketing assistant for patient positioning, surgical exposure, retraction, placement of implants, and closure of the surgical wound. PLAN: The patient can weight-bear as tolerated on the operative extremity. 2 doses of postoperative antibiotics. DVT prophylaxis with aspirin 81 mg twice a day based on preoperative risk stratification. Physical therapy for gait training. Discontinue drain postoperative day #1 if output is less than 100 mL per shift.
[2021-08-14] MEDS ORDERED: ONDANSETRON 4 MG/2 ML VIAL IVP PRN (10:29)
[2021-08-14] MEDS ORDERED: HYDROcodone/APAP 5-325MG 1 EACH TAB PO PRN (10:29)
[2021-08-14] MEDS ORDERED: HYDROmorphone 1 MG/ML 1 ML SYRINGE IVP PRN (10:29)
[2021-08-14] MEDS ORDERED: hydrOXYzine pamoate 25 MG CAP PO PRN (10:29)
[2021-08-14] MEDS ORDERED: HYDROmorphone 0.5 MG/0.5 ML SYRINGE IVP PRN (10:29)
[2021-08-14] MEDS ORDERED: HYDROmorphone 0.2 MG/1 ML SYRINGE IVP PRN (10:29)
[2021-08-14] MEDS ORDERED: NALOXONE 0.4 MG/ML 1 ML VIAL IV PRN (10:29)
[2021-08-14] MEDS ORDERED: HYDROmorphone 0.5 MG/0.5 ML SYRINGE IVP ONE (10:48)
[2021-08-14] MEDS: HYDROcodone/APAP 5-325MG 1 EACH TAB PO PRN (12:22)
[2021-08-14] MEDS: ASPIRIN 81 MG PO SCH (20:49)
[2021-08-14] MEDS: SENNOSIDES-DOCUSATE SODIUM 1 EACH TAB PO SCH (20:49)
[2021-08-15] MEDS: HYDROcodone/APAP 5-325MG 1 EACH TAB PO PRN ×4 (00:02→20:08)
[2021-08-15] MEDS: LACTATED RINGERS 1,000 ML IV SCH (08:19)
[2021-08-15] MEDS: ASPIRIN 81 MG PO SCH ×2 (08:23→20:08)
[2021-08-15 08:51] LABS: Basophils # (A) 0.03 X 10*3/uL (0.00-0.10); Basophils % (A) 0.3 %; Eosinophils # (A) 0.01 X 10*3/uL (0.04-0.35); Eosinophils % (A) 0.1 %; HCT 24.8 % (37.2-46.3); HGB 7.6 g/dL (12.0-15.0); Immature Grans, Automated 0.4 %; Lymphocytes # (A) 2.45 X 10*3/uL (0.90-5.00); Lymphocytes % (A) 20.5 %; MCH 27.3 pg (27.0-32.0); MCHC 30.6 g/dL (32.0-37.0); MCV 89.2 fL (80.0-97.0); Mean Platelet Volume 10.6 fL (9.5-12.2); Monocytes % (A) 9.2 %; NRBC Per 100 WBC 0 /100 WBCS (0.0-0.0); Neutrophils # (A) 8.29 X 10*3/uL (1.80-7.70); Neutrophils % (A) 69.5 %; Platelet Count 264 X 10*3/uL (140-440); RBC 2.78 X 10*6/uL (4.10-5.20); RDW 13.8 % (11.5-14.5); WBC 11.93 X 10*3/uL (4.50-10.00)
[2021-08-15] MEDS ORDERED: ALBUTEROL NEBULIZED 2.5 MG/3 ML INHALATION PRN (09:09)
[2021-08-15] MEDS ORDERED: SYMBICORT 160-4.5 MCG INHALER INHALATION PRN (09:09)
[2021-08-15] MEDS ORDERED: PANTOPRAZOLE 40 MG/10 ML VIAL IVP SCH (09:15)
[2021-08-15 09:54] LABS: African American GFR (CKD) >90 (>60 ml/min/1.73 sqM); Anion Gap 6 mmol/L; Blood Urea Nitrogen 9 mg/dL (7-17); Calcium 8.4 mg/dL (8.4-10.2); Carbon Dioxide 26 mmol/L (22-30); Chloride 104 mmol/L (98-107); Glucose 112 mg/dL (74-99); Magnesium 1.6 mg/dL (1.6-2.3); Non-African American GFR(CKD) >90 (>60 ml/min/1.73 sqM); Sodium 136 mmol/L (137-145)
[2021-08-15] MEDS: DULoxetine HCL 60 MG CAPSULE.DR PO SCH (10:10)
[2021-08-15] MEDS: FERROUS SULFATE 325 MG TAB PO SCH ×2 (10:10→17:47)
--- NOTE | 2021-08-15 10:37 | P.PN ---
Subjective Progress Note Date: 08/15/21 This is a 51-year-old female who is status post right total hip arthroplasty. This is postoperative day #1and patient is seen and evaluated at bedside today. Patient states that her pain is well controlled, but she is slightly lightheaded this morning. Objective - Vital Signs Vital signs: Vital Signs Temp 98.5 F 08/15/21 08:11 Pulse 106 H 08/15/21 08:11 Resp 19 08/15/21 08:11 BP 99/65 08/15/21 08:11 Pulse Ox 96 08/15/21 08:11 Intake & Output 08/14/21 08/15/21 08/15/21 18:59 06:59 18:59 Intake Total 2050 50 Output Total 500 200 Balance 1550 50 -200 Weight 110.1 kg Intake: IV 0 Intake, IV Titration 50 Amount ceFAZolin 2 gm In Sodium 50 Chloride 0.9% 50 ml @ 100 mls/hr IVPB ONCE PRN Rx# :[id number] Output: Drainage 200 Right Hip 200 Estimated Blood Loss 500 Other: Voiding Method Toilet Toilet # Voids 1 - Exam Vital signs are stable. Patient is in no acute distress and is alert and oriented 3. Calf is soft and nontender to palpation. Dressing is clean, dry, and intact. Patient has full foot and ankle motion without pain or difficulty. Sensation intact. Neurovascular status and circulatory status are intact. - Labs CBC & Chem 7: 08/15/21 04:16 08/15/21 04:16 Labs: Abnormal Lab Results - Last 24 Hours (Table) 08/15/21 08/15/21 Range/Units 04:16 04:16 WBC 11.93 H (4.50-10.00) X 10*3/uL RBC 2.78 L (4.10-5.20) X 10*6/uL Hgb 7.6 L (12.0-15.0) g/dL Hct 24.8 L (37.2-46.3) % MCHC 30.6 L (32.0-37.0) g/dL Immature Gran # 0.05 H (0.00-0.04) X 10*3/uL Neutrophils # 8.29 H (1.80-7.70) X 10*3/uL Monocytes # 1.10 H (0.20-1.00) X 10*3/uL Eosinophils # 0.01 L (0.04-0.35) X 10*3/uL Sodium 136 L (137-145) mmol/L Creatinine 0.48 L (0.52-1.04) mg/dL Glucose 112 H (74-99) mg/dL Assessment and Plan (1) Osteoarthritis of right hip Current Visit: Yes Status: Acute Code(s): M16.11 - UNILATERAL PRIMARY OSTEOARTHRITIS, RIGHT HIP SNOMED Code(s): 732167112473441 (2) S/P total hip arthroplasty Current Visit: Yes Status: Acute Code(s): Z96.649 - PRESENCE OF UNSPECIFIED ARTIFICIAL HIP JOINT SNOMED Code(s): 485807778646 Plan: Continue routine postop care and pain control. Continue anticoagulation. Weightbearing as tolerated with a walker. Drain is removed today. Leave dressing intact. Hemoglobin is 7.6 today. Appreciate input from medicine. Anticipate discharge home with homecare tomorrow.
[2021-08-15 13:00] LABS: Basophils % (A) 0 %; Eosinophils % (A) 0 %; HCT 25.6 % (34.0-46.0); HGB 8.1 gm/dL (11.4-16.0); Lymphocytes # (A) 2.2 k/uL (1.0-4.8); Lymphocytes % (A) 25 %; MCH 28.2 pg (25.0-35.0); MCHC 31.6 g/dL (31.0-37.0); MCV 89.2 fL (80.0-100.0); Mean Platelet Volume 8.2; Monocytes # (A) 0.6 k/uL (0-1.0); Monocytes % (A) 7 %; Neutrophils # (A) 5.7 k/uL (1.3-7.7); Neutrophils % (A) 65 %; Platelet Count 253 k/uL (150-450); RBC 2.87 m/uL (3.80-5.40); RDW 13.5 % (11.5-15.5); WBC 8.8 k/uL (3.8-10.6)
--- NOTE | 2021-08-15 18:08 | P.CONS ---
History of Present Illness - History of Present Illness This is a pleasant 51 years old female with past medical history of COPD, ROLANDO D/Reflux, Hyperlipidemia, Hypertension, Osteoarthritis , Sleep Apnea/CPAP/BIPAP, hiatal hernia, finished A/B for recent UTI She presents because of her severe osteoarthritis of the right hip status post right total hip arthroplasty. Today is postop day #1. Patient was sitting in chair, fully awake and oriented, denies any symptoms, no chest pain or dyspnea, no abdominal pain, no vomiting, no urinary complaints. She ate little bit. Vitals showed low-grade fever of 100.2, blood pressure was low during the night 63/46 and 99/65 , currently improved 119/76. She is also tachycardic around 107. Oxygen is 92% on room air. She has some mild leukocytosis at 11.9 came back to 8.8. Hemoglobin 8.1 was 7.6 earlier. Currently she is kept on aspirin twice daily most likely for DVT prophylaxis. Also she is on a Protonix. Past Medical History Past Medical History: COPD, GERD/Reflux, Hyperlipidemia, Hypertension, Musculoskeletal Disorder, Osteoarthritis (OA), Sleep Apnea/CPAP/BIPAP Additional Past Medical History / Comment(s): USES CPAP MACHINE, hx. colon polyps, hiatal hernia, lost 115# by changing diet & lifestyle, finished A/B for recent UTI History of Any Multi-Drug Resistant Organisms: None Reported Past Surgical History: Appendectomy, Hysterectomy, Tonsillectomy, Uterine Ablation Additional Past Surgical History / Comment(s): D&C, lipoma removed left rib cage,. COLONOSCOPY/EGD Past Anesthesia/Blood Transfusion Reactions: No Reported Reaction Past Psychological History: Anxiety Smoking Status: Former smoker Past Alcohol Use History: None Reported Additional Past Alcohol Use History / Comment(s): QUIT SMOKING 2013, SMOKED 2 PDD FROM AGE 18 Past Drug Use History: None Reported - Past Family History Mother Additional Family Medical History / Comment(s): DIES FROM ANEURYSM Father Family Medical History: Pulmonary Embolus Medications and Allergies Home Medications Medication Instructions Recorded Confirmed Type Metoprolol Tartrate [Lopressor] 50 mg PO BID 03/08/16 08/14/21 History Pravastatin Sodium [Pravachol] 80 mg PO HS 03/08/16 08/14/21 History amLODIPine [Norvasc] 10 mg PO QAM 03/08/16 08/14/21 History Cholecalciferol [Vitamin D3 (25 1,000 unit PO DAILY 03/28/20 08/14/21 History Mcg = 1000 Iu)] Psyllium Husk [Metamucil] 0.4 gm PO DAILY 03/28/20 08/14/21 History Albuterol Sulfate [Proair Hfa] 1 - 2 puff INHALATION Q6HR PRN 08/10/21 08/14/21 History Budesonide-Formot 160-4.5 Mcg 2 puff INHALATION BID PRN 08/10/21 08/14/21 History [Symbicort 160-4.5 Mcg Inhaler] DULoxetine HCL [Cymbalta] 60 mg PO DAILY 08/10/21 08/14/21 History HYDROcodone/APAP 5-325MG [[place] 1 tab PO Q6HR PRN 08/10/21 08/14/21 History 5-325] Naproxen [Naprosyn] 500 mg PO Q12HR PRN 08/10/21 08/14/21 History Omeprazole 20 mg PO DAILY 08/10/21 08/14/21 History Aspirin 81 mg PO BID 30 Days #60 tab 08/14/21 Rx Diclofenac Sodium [Voltaren] 75 mg PO BID 30 Days #60 tab 08/14/21 Rx Docusate [Colace] 100 mg PO BID #60 capsule 08/14/21 Rx HYDROcodone/APAP 5-325MG [[place] 1 - 2 tab PO Q6HR PRN 7 Days #40 08/14/21 Rx 5-325] tab Omeprazole 40 mg PO DAILY 30 Days #30 cap 08/14/21 Rx Allergies Allergy/AdvReac Type Severity Reaction Status Date / Time varenicline [From Chantix] Allergy Rash/Hives Verified 08/14/21 07:08 Physical Exam Vitals: Vital Signs Temp Pulse Resp BP Pulse Ox 08/15/21 08:11 98.5 F 106 H 19 99/65 96 08/15/21 02:17 100.2 F H 89 106/66 96 08/14/21 19:41 98.4 F 73 16 112/72 97 08/14/21 13:45 76 89/56 08/14/21 13:15 82 96/61 08/14/21 12:45 81 63/46 95 08/14/21 12:30 86 89/40 95 08/14/21 12:15 72 93/60 94 L 08/14/21 12:00 98.8 F 78 18 97/66 92 L 08/14/21 11:23 81 16 124/73 94 L 08/14/21 11:08 76 16 125/73 99 08/14/21 10:53 67 16 120/73 100 08/14/21 10:38 73 14 124/74 100 Intake and Output 08/14/21 08/15/21 08/15/21 22:59 06:59 14:59 Intake Total 50 Output Total 200 Balance 50 -200 Intake: Intake, IV Titration 50 Amount ceFAZolin 2 gm In Sodium 50 Chloride 0.9% 50 ml @ 100 mls/hr IVPB ONCE PRN Rx# :[id number] Output: Drainage 200 Right Hip 200 Other: Voiding Method Toilet Toilet # Voids 1 GENERAL: The patient is alert and oriented x3, not in any acute distress. Well developed, well nourished. HEENT: Pupils are round and equally reacting to light. EOMI. No scleral icterus. No conjunctival pallor. Normocephalic, atraumatic. No pharyngeal erythema. No thyromegaly. CARDIOVASCULAR: S1 and S2 present. No murmurs, rubs, or gallops. PULMONARY: Chest is clear to auscultation, no wheezing or crackles. ABDOMEN: Soft, nontender, nondistended, normoactive bowel sounds. No palpable organomegaly. MUSCULOSKELETAL: No joint swelling or deformity. -EXTREMITIES: No cyanosis, clubbing, or pedal edema. Right hip surgical wound with dressing place, of exam is deferred to surgery primary team NEUROLOGICAL: Gross neurological examination did not reveal any focal deficits. SKIN: No rashes. no petechiae. Results CBC & Chem 7: 08/15/21 12:16 08/15/21 04:16 Labs: Abnormal Lab Results - Last 24 Hours (Table) 08/15/21 08/15/21 Range/Units 04:16 04:16 WBC 11.93 H (4.50-10.00) X 10*3/uL RBC 2.78 L (4.10-5.20) X 10*6/uL Hgb 7.6 L (12.0-15.0) g/dL Hct 24.8 L (37.2-46.3) % MCHC 30.6 L (32.0-37.0) g/dL Immature Gran # 0.05 H (0.00-0.04) X 10*3/uL Neutrophils # 8.29 H (1.80-7.70) X 10*3/uL Monocytes # 1.10 H (0.20-1.00) X 10*3/uL Eosinophils # 0.01 L (0.04-0.35) X 10*3/uL Sodium 136 L (137-145) mmol/L Creatinine 0.48 L (0.52-1.04) mg/dL Glucose 112 H (74-99) mg/dL Assessment and Plan Assessment: -Severe osteoarthritis status post right total hip arthroplasty. -Postoperative hypotension, improved -Postop anemia, most likely secondary to blood loss during surgery. Start ferrous sulfate and repeat hemoglobin tomorrow -1 episode of fever. Low-grade, felt related to her recent surgery rather than infection. However we will order chest x-ray and urinalysis. And we will monitor the patient while off antibiotics. No antibiotics for now and there is no strong evidence of infection and risks more than benefits. -Hypertension, continue same medication -Hyperlipidemia, continue with statin -History of sleep apnea -History of hiatal hernia -History of GERD Thank you for consulting us, we will follow-up with the patient
--- NOTE | 2021-08-15 18:52 | XR ---
EXAMINATION TYPE: XR chest 2V DATE OF EXAM: 08/15/2021 COMPARISON: NONE HISTORY: Fever TECHNIQUE: 2 views FINDINGS: There is some linear density left lower lobe. Right lung is clear. Heart size is normal. Th ere are no hilar masses. IMPRESSION: Mild subsegmental atelectasis left lung base. Normal heart.
[2021-08-15] MEDS: SODIUM CHLORIDE 0.9% 1,000 ML IV SCH (20:04)
[2021-08-15] MEDS: SENNOSIDES-DOCUSATE SODIUM 1 EACH TAB PO SCH (20:07)
[2021-08-15] MEDS: PRAVASTATIN SODIUM 80 MG TAB PO SCH (20:08)
[2021-08-16] MEDS: SODIUM CHLORIDE 0.9% 1,000 ML IV SCH ×3 (05:42→20:54)
[2021-08-16] MEDS: LACTATED RINGERS 1,000 ML IV SCH (05:43)
[2021-08-16 06:46] LABS: Appearance,Urine Clear (Clear); Bilirubin,Urine Negative (Negative); Blood,Urine Negative (Negative); Color,Urine Yellow; Glucose,Urine (UA) Negative (Negative); Ketones,Urine Negative (Negative); Leukocyte Esterase,Urine Negative (Negative); Nitrite,Urine Negative (Negative); Protein,Urine Negative (Negative); Specific Gravity,Urine 1.017 (1.001-1.035); Urobilinogen,Urine <2.0 mg/dL (<2.0)
[2021-08-16] MEDS: PANTOPRAZOLE 40 MG TABLET PO SCH (07:41)
[2021-08-16] MEDS: FERROUS SULFATE 325 MG TAB PO SCH ×2 (07:42→17:10)
[2021-08-16] MEDS: DULoxetine HCL 60 MG CAPSULE.DR PO SCH (07:42)
[2021-08-16] MEDS: ASPIRIN 81 MG PO SCH ×2 (07:42→20:52)
[2021-08-16] MEDS: HYDROcodone/APAP 5-325MG 1 EACH TAB PO PRN ×3 (09:29→22:34)
[2021-08-16 09:33] LABS: African American GFR (CKD) 141.2 (60.0-200.0); Anion Gap 10.5 mmol/L (10.00-18.00); BUN/Creat Ratio 17.95 Ratio (12.00-20.00); Blood Urea Nitrogen 6.8 mg/dL (9.0-27.0); Calcium 8.4 mg/dL (8.7-10.3); Carbon Dioxide 22.6 mmol/L (20.0-27.5); Magnesium 1.8 mg/dL (1.5-2.4); Non-African American GFR(CKD) 121.8 (60.0-200.0); Potassium 4.1 mmol/L (3.5-5.5)
--- NOTE | 2021-08-16 10:00 | P.PN ---
Subjective Progress Note Date: 08/16/21 This is a 51-year-old female who is status post right total hip arthroplasty. This is postoperative day #2 and patient is seen and evaluated at bedside today. Patient states that her pain is better controlled and she has been up and walking. Patient states that she still feels slightly dizzy when she stands up this morning. Objective - Vital Signs Vital signs: Vital Signs Temp 98.2 F 08/16/21 09:41 Pulse 106 H 08/16/21 08:00 Resp 17 08/16/21 08:00 BP 129/84 08/16/21 08:00 Pulse Ox 94 L 08/16/21 08:00 Intake & Output 08/15/21 08/16/21 08/16/21 18:59 06:59 18:59 Output Total 200 Balance -200 Output: Drainage 200 Right Hip 200 Other: Voiding Method Toilet Toilet # Voids 4 3 - Exam Vital signs are stable. Patient is in no acute distress and is alert and oriented 3. Calf is soft and nontender to palpation. Dressing is clean, dry, and intact. Patient has full foot and ankle motion without pain or difficulty. Sensation intact. Neurovascular status and circulatory status are intact. - Labs CBC & Chem 7: 08/15/21 12:16 08/16/21 03:49 Labs: Abnormal Lab Results - Last 24 Hours (Table) 08/15/21 08/16/21 08/16/21 Range/Units 12:16 03:49 03:49 RBC 2.87 L (3.80-5.40) m/uL Hgb 8.1 L (11.4-16.0) gm/dL Hct 25.6 L (34.0-46.0) % BUN 6.8 L (9.0-27.0) mg/dL Creatinine 0.4 L (0.6-1.5) mg/dL Glucose 118 H (70-110) mg/dL Calcium 8.4 L (8.7-10.3) mg/dL C-Reactive Protein 12.1 H (<1.0) mg/dL Assessment and Plan (1) Osteoarthritis of right hip Current Visit: Yes Status: Acute Code(s): M16.11 - UNILATERAL PRIMARY OSTEOARTHRITIS, RIGHT HIP SNOMED Code(s): 596737842109540 (2) S/P total hip arthroplasty Current Visit: Yes Status: Acute Code(s): Z96.649 - PRESENCE OF UNSPECIFIED ARTIFICIAL HIP JOINT SNOMED Code(s): 184978318777 Plan: Continue routine postop care and pain control. Continue anticoagulation. Weightbearing as tolerated with a walker. Drain is removed today. Leave dressing intact. Hemoglobin is 8.1 today. Appreciate input from medicine. Anticipate discharge home later today or tomorrow.
[2021-08-16 10:53] LABS: Basophils # (A) 0.02 X 10*3/uL (0.00-0.10); Basophils % (A) 0.2 %; Eosinophils # (A) 0.09 X 10*3/uL (0.04-0.35); Eosinophils % (A) 1.1 %; Immature Grans, Automated 0.5 %; Lymphocytes # (A) 1.74 X 10*3/uL (0.90-5.00); Lymphocytes % (A) 21.7 %; Monocytes # (A) 0.96 X 10*3/uL (0.20-1.00); NRBC Per 100 WBC 0 /100 WBCS (0.0-0.0); Neutrophils # (A) 5.18 X 10*3/uL (1.80-7.70); Neutrophils % (A) 64.5 %
[2021-08-16 10:54] LABS: HCT 22.3 % (37.2-46.3); HGB 6.8 g/dL (12.0-15.0); MCH 27.4 pg (27.0-32.0); MCHC 30.5 g/dL (32.0-37.0); MCV 89.9 fL (80.0-97.0); Mean Platelet Volume 10.9 fL (9.5-12.2); Platelet Count 215 X 10*3/uL (140-440); RBC 2.48 X 10*6/uL (4.10-5.20); RDW 13.9 % (11.5-14.5); WBC 8.03 X 10*3/uL (4.50-10.00)
[2021-08-16 10:55] LABS: RBC Morphology NORMAL
[2021-08-16 11:27] LABS: HCT 25.5 % (34.0-46.0); HGB 8.1 gm/dL (11.4-16.0); MCH 28.4 pg (25.0-35.0); MCV 88.7 fL (80.0-100.0); Mean Platelet Volume 8.3; Platelet Count 261 k/uL (150-450); RBC 2.87 m/uL (3.80-5.40); RDW 13.5 % (11.5-15.5); WBC 9.4 k/uL (3.8-10.6)
--- NOTE | 2021-08-16 18:31 | P.PN ---
Subjective This is a pleasant 51 years old female with past medical history of COPD, GERD/Reflux, Hyperlipidemia, Hypertension, Osteoarthritis , Sleep Apnea/CP AP/BIPAP, hiatal hernia, finished A/B for recent UTI She presents because of her severe osteoarthritis of the right hip status post right total hip arthroplasty. Today is postop day #1. Patient was sitting in chair, fully awake and oriented, denies any symptoms, no chest pain or dyspnea, no abdominal pain, no vomiting, no urinary complaints. She ate little bit. Vitals showed low-grade fever of 100.2, blood pressure was low during the night 63/46 and 99/65 , currently improved 119/76. She is also tachycardic around 107. Oxygen is 92% on room air. She has some mild leukocytosis at 11.9 came back to 8.8. Hemoglobin 8.1 was 7.6 earlier. Currently she is kept on aspirin twice daily most likely for DVT prophylaxis. Also she is on a Protonix. 08/16/2021 Patient was sitting in chair today fully awake and oriented, pain controlled at her right hip surgical site. Surgical wound is closed with just in place with no swelling or signs of inflammation or infection. She has another episode of fever yesterday on 101. WBC is normal 9.4, hemoglobin this morning was 6.8 over its folds positive results when we repeated the testis 8.1. BMP is unremarkable. The portcalcitonin is negative at 0.02. Urinalysis with no evidence of infection and chest x-ray showed no infiltrates only atelectasis. She still mildly tachycardic and 105 and she kept on normal saline with 30 mL per hour Patient is off antibiotics currently. Objective - Vital Signs Vital signs: Vital Signs Temp 98.2 F 08/16/21 09:41 Pulse 106 H 08/16/21 08:00 Resp 17 08/16/21 08:00 BP 129/84 08/16/21 08:00 Pulse Ox 94 L 08/16/21 08:00 Intake & Output 08/15/21 08/16/21 08/16/21 18:59 06:59 18:59 Output Total 200 Balance -200 Output: Drainage 200 Right Hip 200 Other: Voiding Method Toilet Toilet # Voids 4 3 - Exam GENERAL: The patient is alert and oriented x3, not in any acute distress. Well developed, well nourished. HEENT: Pupils are round and equally reacting to light. EOMI. No scleral icterus. No conjunctival pallor. Normocephalic, atraumatic. No pharyngeal erythema. No thyromegaly. CARDIOVASCULAR: S1 and S2 present. No murmurs, rubs, or gallops. PULMONARY: Chest is clear to auscultation, no wheezing or crackles. ABDOMEN: Soft, nontender, nondistended, normoactive bowel sounds. No palpable organomegaly. MUSCULOSKELETAL: No joint swelling or deformity. -EXTREMITIES: No cyanosis, clubbing, or pedal edema. Right hip surgical wound with dressing place, of exam is deferred to surgery primary team NEUROLOGICAL: Gross neurological examination did not reveal any focal deficits. SKIN: No rashes. no petechiae. - Labs CBC & Chem 7: 08/16/21 10:59 08/16/21 03:49 Labs: Abnormal Lab Results - Last 24 Hours (Table) 08/15/21 08/16/21 08/16/21 Range/Units 12:16 03:49 03:49 RBC 2.87 L (3.80-5.40) m/uL Hgb 8.1 L (11.4-16.0) gm/dL Hct 25.6 L (34.0-46.0) % BUN 6.8 L (9.0-27.0) mg/dL Creatinine 0.4 L (0.6-1.5) mg/dL Glucose 118 H (70-110) mg/dL Calcium 8.4 L (8.7-10.3) mg/dL C-Reactive Protein 12.1 H (<1.0) mg/dL Assessment and Plan Assessment: -Severe osteoarthritis status post right total hip arthroplasty. -Postoperative hypotension, improved -Postop anemia, most likely secondary to blood loss during surgery. Start ferrous sulfate and repeat hemoglobin tomorrow - recurrent fever. Low-grade, felt related to her recent surgery rather than infection. chest x-ray and urinalysis both were negative. And we will monitor the patient while off antibiotics. No antibiotics for now and there is no strong evidence of infection and risks more than benefits. -Hypertension, continue same medication -Hyperlipidemia, continue with statin -History of sleep apnea -History of hiatal hernia -History of GERD Thank you for consulting us, we will follow-up with the patient
[2021-08-16] MEDS: PRAVASTATIN SODIUM 80 MG TAB PO SCH (20:52)
[2021-08-16] MEDS: SENNOSIDES-DOCUSATE SODIUM 1 EACH TAB PO SCH (20:52)
[2021-08-16] MEDS ORDERED: ACETAMINOPHEN TAB 325 MG TAB PO PRN (22:07)
--- NOTE | 2021-08-17 00:08 | P.CONS ---
History of Present Illness - Reason for Consult Consult date: 08/16/21 Fever Requesting physician: Malcolm Hirsch Sheet - Chief Complaint Fever 1 day - History of Present Illness Patient is a 51-year-old female with a past medical he significant for severe right hip osteoarthritis patient was electively admitted to the hospital on 08/14/2021 for her right hip arthroplasty that was completed through direct anterior approach patient subsequently has been admitted to the hospital for postoperative care patient was afebrile on presentation to the hospital on postop day 1 early in the morning the patient did have low-grade fever 100.2 and subsequently she did spike a fever of 101 F right last evening, patient did have blood cultures drawn which are currently pending, patient did have a UA that is negative chest x-ray was negative for acute infiltrate, patient did have a normal white count however significant drop in hemoglobin down to 6.8 on his CBC today from 8.1 yesterday, infectious disease was consulted for further management. On today's evaluation that is 08/16/2021, the patient denies having any fever or any chills, the patient mention she is feeling better today compared to yesterday, the patient denies having any headache or URI symptoms, patient denies having any chest pain or shortness of breath no cough no nausea no vomiting no abdominal pain no diarrhea and pain to the right hip is currently controlled. Review of Systems Positive point has been mentioned in the HPI rest of the systems are negative Past Medical History Past Medical History: COPD, GERD/Reflux, Hyperlipidemia, Hypertension, Musculoskeletal Disorder, Osteoarthritis (OA), Sleep Apnea/CPAP/BIPAP Additional Past Medical History / Comment(s): USES CPAP MACHINE, hx. colon polyps, hiatal hernia, lost 115# by changing diet & lifestyle, finished A/B for recent UTI History of Any Multi-Drug Resistant Organisms: None Reported Past Surgical History: Appendectomy, Hysterectomy, Tonsillectomy, Uterine Ablation Additional Past Surgical History / Comment(s): D&C, lipoma removed left rib ca ge,. COLONOSCOPY/EGD Past Anesthesia/Blood Transfusion Reactions: No Reported Reaction Past Psychological History: Anxiety Smoking Status: Former smoker Past Alcohol Use History: None Reported Additional Past Alcohol Use History / Comment(s): QUIT SMOKING 2013, SMOKED 2 PDD FROM AGE 18 Past Drug Use History: None Reported - Past Family History Mother Additional Family Medical History / Comment(s): DIES FROM ANEURYSM Father Family Medical History: Pulmonary Embolus Medications and Allergies Home Medications Medication Instructions Recorded Confirmed Type Metoprolol Tartrate [Lopressor] 50 mg PO BID 03/08/16 08/14/21 History Pravastatin Sodium [Pravachol] 80 mg PO HS 03/08/16 08/14/21 History amLODIPine [Norvasc] 10 mg PO QAM 03/08/16 08/14/21 History Cholecalciferol [Vitamin D3 (25 1,000 unit PO DAILY 03/28/20 08/14/21 History Mcg = 1000 Iu)] Psyllium Husk [Metamucil] 0.4 gm PO DAILY 03/28/20 08/14/21 History Albuterol Sulfate [Proair Hfa] 1 - 2 puff INHALATION Q6HR PRN 08/10/21 08/14/21 History Budesonide-Formot 160-4.5 Mcg 2 puff INHALATION BID PRN 08/10/21 08/14/21 History [Symbicort 160-4.5 Mcg Inhaler] DULoxetine HCL [Cymbalta] 60 mg PO DAILY 08/10/21 08/14/21 History HYDROcodone/APAP 5-325MG [[place] 1 tab PO Q6HR PRN 08/10/21 08/14/21 History 5-325] Naproxen [Naprosyn] 500 mg PO Q12HR PRN 08/10/21 08/14/21 History Omeprazole 20 mg PO DAILY 08/10/21 08/14/21 History Aspirin 81 mg PO BID 30 Days #60 tab 08/14/21 Rx Diclofenac Sodium [Voltaren] 75 mg PO BID 30 Days #60 tab 08/14/21 Rx Docusate [Colace] 100 mg PO BID #60 capsule 08/14/21 Rx HYDROcodone/APAP 5-325MG [[place] 1 - 2 tab PO Q6HR PRN 7 Days #40 08/14/21 Rx 5-325] tab Omeprazole 40 mg PO DAILY 30 Days #30 cap 08/14/21 Rx Allergies Allergy/AdvReac Type Severity Reaction Status Date / Time varenicline [From Chantix] Allergy Rash/Hives Verified 08/14/21 07:08 Physical Exam Vitals: Vital Signs Temp Pulse Resp BP BP Pulse Ox 08/16/21 09:41 98.2 F 08/16/21 08:00 106 H 17 129/84 94 L 08/16/21 02:00 98.9 F 104 H 16 120/75 92 L 08/15/21 21:00 99.2 F 08/15/21 20:00 101.0 F H 111 H 17 124/72 95 08/15/21 14:50 98.3 F 107 H 17 119/76 92 L Intake and Output 08/15/21 08/16/21 08/16/21 22:59 06:59 14:59 Other: Voiding Method Toilet # Voids 4 3 1 GENERAL DESCRIPTION: Middle-aged female lying in bed, no distress. No tachypnea or accessory muscle of respiration use. HEENT: Shows Pallor , no scleral icterus. Oral mucous membrane is dry. No pharyngeal erythema or thrush NECK: Trachea central, no thyromegaly. LUNGS: Unlabored breathing. Clear to auscultation anteriorly. No wheeze or crackle. HEART: S1, S2, regular rate and rhythm. No loud murmur ABDOMEN: Soft, no tenderness , guarding or rigidity, no organomegaly EXTREMITIES: No edema of feet. SKIN: No rash, no masses palpable. NEUROLOGICAL: The patient is awake, alert, oriented x3, mood and affect normal. Results CBC & Chem 7: 08/16/21 10:59 08/16/21 03:49 Labs: Abnormal Lab Results - Last 24 Hours (Table) 08/15/21 08/16/21 08/16/21 Range/Units 12:16 03:49 03:49 RBC 2.87 L 2.48 L (3.80-5.40) m/uL Hgb 8.1 L 6.8 L* (11.4-16.0) gm/dL Hct 25.6 L 22.3 L (34.0-46.0) % MCHC 30.5 L (32.0-37.0) g/dL BUN 6.8 L (9.0-27.0) mg/dL Creatinine 0.4 L (0.6-1.5) mg/dL Glucose 118 H (70-110) mg/dL Calcium 8.4 L (8.7-10.3) mg/dL C-Reactive Protein (<1.0) mg/dL 08/16/21 08/16/21 Range/Units 03:49 10:59 RBC 2.87 L (3.80-5.40) m/uL Hgb 8.1 L (11.4-16.0) gm/dL Hct 25.5 L (34.0-46.0) % MCHC (32.0-37.0) g/dL BUN (9.0-27.0) mg/dL Creatinine (0.6-1.5) mg/dL Glucose (70-110) mg/dL Calcium (8.7-10.3) mg/dL C-Reactive Protein 12.1 H (<1.0) mg/dL Assessment and Plan (1) Fever Current Visit: Yes Status: Acute Code(s): R50.9 - FEVER, UNSPECIFIED SNOMED Code(s): 665560415 Plan: 1patient with a postoperative fever more likely reactive and possible hematoma at the surgical site as the patient did have significant drop in hemoglobin versus pulmonary atelectasis at the patient currently do not have any obvious focus of infection patient did have normal white count does not look toxic chest x-ray was negative UA negative abdominal soft on clinical examination. 2-we will check a CRP procalcitonin and wait for the blood culture to finalize 3-continue to monitor the patient closely off antibiotic therapy We will follow on clinical condition and cultures to further adjust medication if needed Thank you for this consultation will follow this patient along with you Time with Patient: Greater than 30
[2021-08-17 04:40] VITALS: RESP 16
[2021-08-17] MEDS: SODIUM CHLORIDE 0.9% 1,000 ML IV SCH ×2 (05:30→09:12)
[2021-08-17] MEDS: LACTATED RINGERS 1,000 ML IV SCH (05:32)
[2021-08-17 09:31] LABS: Basophils # (A) 0.03 X 10*3/uL (0.00-0.10); Basophils % (A) 0.5 %; Eosinophils % (A) 3.3 %; HCT 20.3 % (37.2-46.3); HGB 6.1 g/dL (12.0-15.0); Immature Grans, Automated 0.3 %; Lymphocytes # (A) 1.99 X 10*3/uL (0.90-5.00); Lymphocytes % (A) 32.4 %; MCH 27.1 pg (27.0-32.0); MCV 90.2 fL (80.0-97.0); Mean Platelet Volume 10.5 fL (9.5-12.2); Monocytes % (A) 9.8 %; NRBC Per 100 WBC 0 /100 WBCS (0.0-0.0); Neutrophils % (A) 53.7 %; Platelet Count 211 X 10*3/uL (140-440); RBC 2.25 X 10*6/uL (4.10-5.20); RDW 13.7 % (11.5-14.5); WBC 6.14 X 10*3/uL (4.50-10.00)
[2021-08-17 09:42] LABS: ALT 10 U/L (8-44); AST 9 U/L (13-35); Albumin 3.1 g/dL (3.8-4.9); Albumin/Globulin Ratio 1.82 (1.60-3.17); Alkaline Phosphatase 54 U/L (41-126); Bilirubin, Conjugated <0.20 mg/dL (0.20-0.40); Globulin 1.7 g/dL (1.6-3.3); Total Bilirubin <0.15 mg/dL (0.30-1.20); Total Protein 4.8 g/dL (6.2-8.2)
[2021-08-17] MEDS: ASPIRIN 81 MG PO SCH (10:03)
[2021-08-17] MEDS: DULoxetine HCL 60 MG CAPSULE.DR PO SCH (10:03)
[2021-08-17] MEDS: PANTOPRAZOLE 40 MG TABLET PO SCH (10:03)
[2021-08-17] MEDS: FERROUS SULFATE 325 MG TAB PO SCH ×2 (10:03→16:52)
[2021-08-17] MEDS: HYDROcodone/APAP 5-325MG 1 EACH TAB PO PRN ×2 (10:06→16:43)
[2021-08-17 11:05] LABS: Basophils % (A) 0 %; Eosinophils # (A) 0.2 k/uL (0-0.7); Eosinophils % (A) 3 %; HCT 24.2 % (34.0-46.0); HGB 7.5 gm/dL (11.4-16.0); Hypochromasia Slight; Lymphocytes # (A) 1.4 k/uL (1.0-4.8); Lymphocytes % (A) 21 %; MCH 27.7 pg (25.0-35.0); MCHC 31.1 g/dL (31.0-37.0); MCV 88.9 fL (80.0-100.0); Mean Platelet Volume 8.9; Monocytes # (A) 0.5 k/uL (0-1.0); Monocytes % (A) 7 %; Neutrophils # (A) 4.6 k/uL (1.3-7.7); Neutrophils % (A) 68 %; Platelet Count 242 k/uL (150-450); RBC 2.72 m/uL (3.80-5.40); RDW 13.3 % (11.5-15.5); WBC 6.8 k/uL (3.8-10.6)
--- NOTE | 2021-08-17 12:43 | P.DS ---
Providers Date of admission: 08/15/21 11:33 Expected date of discharge: 08/17/21 Attending physician: Diallo Franklin Consults: 08/14/21 10:33 Consult Physician Routine Consulting Provider: Sd Lo Consult Reason/Comments: medical management Do you want consulting provider notified?: Yes 08/16/21 06:35 Consult Physician Urgent Consulting Provider: Jaqueline Moreno Consult Reason/Comments: fever Do you want consulting provider notified?: Yes Primary care physician: Dre Collins - Discharge Diagnosis(es) (1) Osteoarthritis of right hip Current Visit: Yes Status: Acute (2) S/P total hip arthroplasty Current Visit: Yes Status: Acute Hospital Course: This is a 51-year-old female with known history of degenerative arthritis of the right hip. The patient presented for evaluation as an outpatient. After discussion and consideration patient elects to proceed with total hip arthroplasty. The patient is seen preoperatively by Dr. Franklin and medically cleared for surgery by their primary care physician. Patient is admitted to [facility] on 08/14/2021 for total hip arthroplasty. The procedure is performed without complication or sequelae. The patient is doing well postoperatively. Labs and vital signs are stable on day of discharge. Patient was having issues with anemia postoperatively, but this is improving and she is asymptomatic on day of discharge. On day of discharge patient's hip incision is healing well. There is minimal erythema. There is no drainage noted at this time. There is minimal soft tissue swelling to the hip and thigh. Patient has full foot and ankle motion without difficulty or pain. Calf is soft and nontender to palpation. Neurovascular status to the right lower extremity is intact. Patient is discharged home in good condition. Please see med rec for accurate list of home medications. Plan - Discharge Summary Discharge Rx Participant: Yes New Discharge Prescriptions: New Omeprazole 40 mg PO DAILY 30 Days #30 cap Diclofenac Sodium [Voltaren] 75 mg PO BID 30 Days #60 tab Aspirin 81 mg PO BID 30 Days #60 tab Docusate [Colace] 100 mg PO BID #60 capsule HYDROcodone/APAP 5-325MG [[place] 5-325] 1 - 2 tab PO Q6HR PRN 7 Days #40 tab PRN Reason: Pain No Action amLODIPine [Norvasc] 10 mg PO QAM Metoprolol Tartrate [Lopressor] 50 mg PO BID Pravastatin Sodium [Pravachol] 80 mg PO HS Cholecalciferol [Vitamin D3 (25 Mcg = 1000 Iu)] 1,000 unit PO DAILY Psyllium Husk [Metamucil] 0.4 gm PO DAILY DULoxetine HCL [Cymbalta] 60 mg PO DAILY Omeprazole 20 mg PO DAILY Naproxen [Naprosyn] 500 mg PO Q12HR PRN PRN Reason: Pain HYDROcodone/APAP 5-325MG [[place] 5-325] 1 tab PO Q6HR PRN PRN Reason: Pain Budesonide-Formot 160-4.5 Mcg [Symbicort 160-4.5 Mcg Inhaler] 2 puff INHALATION BID PRN PRN Reason: Shortness Of Breath Albuterol Sulfate [Proair Hfa] 1 - 2 puff INHALATION Q6HR PRN PRN Reason: Shortness Of Breath Discharge Medication List Metoprolol Tartrate [Lopressor] 50 mg PO BID 03/08/16 [History] Pravastatin Sodium [Pravachol] 80 mg PO HS 03/08/16 [History] amLODIPine [Norvasc] 10 mg PO QAM 03/08/16 [History] Cholecalciferol [Vitamin D3 (25 Mcg = 1000 Iu)] 1,000 unit PO DAILY 03/28/20 [History] Psyllium Husk [Metamucil] 0.4 gm PO DAILY 03/28/20 [History] Albuterol Sulfate [Proair Hfa] 1 - 2 puff INHALATION Q6HR PRN 08/10/21 [History] Budesonide-Formot 160-4.5 Mcg [Symbicort 160-4.5 Mcg Inhaler] 2 puff INHALATION BID PRN 08/10/21 [History] DULoxetine HCL [Cymbalta] 60 mg PO DAILY 08/10/21 [History] HYDROcodone/APAP 5-325MG [[place] 5-325] 1 tab PO Q6HR PRN 08/10/21 [History] Naproxen [Naprosyn] 500 mg PO Q12HR PRN 08/10/21 [History] Omeprazole 20 mg PO DAILY 08/10/21 [History] Aspirin 81 mg PO BID 30 Days #60 tab 08/14/21 [Rx] Diclofenac Sodium [Voltaren] 75 mg PO BID 30 Days #60 tab 08/14/21 [Rx] Docusate [Colace] 100 mg PO BID #60 capsule 08/14/21 [Rx] HYDROcodone/APAP 5-325MG [[place] 5-325] 1 - 2 tab PO Q6HR PRN 7 Days #40 tab 08/14/21 [Rx] Omeprazole 40 mg PO DAILY 30 Days #30 cap 08/14/21 [Rx] Follow up Appointment(s)/Referral(s): [facility], [NON-STAFF] - As Needed Diallo Franklin MD [Medical Doctor] - 2 Weeks Activity/Diet/Wound Care/Special Instructions: Weight bear as tolerated on operative leg with a walker. Keep operative dressing intact until follow-up appointment. Take pain medications as prescribed. Take aspirin 81mg BID x 4 weeks for DVT prophylaxis. Follow-up in the office in [address] Franklin. Call the office with any questions or concerns,
[2021-08-17 15:11] VITALS: BP 128/82; PULSE 96; TEMP 96.8
--- NOTE | 2021-08-17 16:00 | PN ---
PROGRESS NOTE DATE OF SERVICE: 08/17/2021 This 51-year-old woman who was admitted with right hip joint arthroplasty had postoperative anemia as well as hypotension. The patient is stabilized at this time. No chest pain. No palpitations. No fever. Hemoglobin is improved to 7.5. Blood pressure has also stabilized. I recommend that the patient have follow-up CBC and further workup in the outpatient setting with Dr. Collins; also hold amlodipine and continue with beta blockers for now, and monitor blood pressure closely at home. PHYSICAL EXAMINATION: Pulse is 93, blood pressure 129/82, respirations 16. HEENT: Conjunctivae normal. CARDIOVASCULAR: S1, S2 muffled. RESPIRATION: Breath sounds diminished at the bases. A few scattered rhonchi. ABDOMEN: Soft, nontender. LEGS: Status post hip surgery. NERVOUS SYSTEM: No focal deficit. LABS: Reviewed. ASSESSMENT: 1. Status post total hip joint arthroplasty. 2. Postoperative hypotension and anemia, improved. 3. Recurrent fever, low-grade, improved. 4. Hypertension. 5. Hyperlipidemia. RECOMMENDATIONS AND DISCUSSION: I recommend to continue current medications, continue with the monitoring, symptomatic treatment. I would recommend resuming the beta blockers and hold amlodipine, which could be restarted a week later once the blood pressure is stabilized. Otherwise, follow-up CBC and BMP with Dr. Collins. Rest of the medications per Orthopedic Surgery. Please see the discharge recommendations and medications for full list. MMODL / IJN: [id number] / MTDD
--- NOTE | 2021-08-21 17:14 | P.PN ---
Subjective Progress Note Date: 08/17/21 Principal diagnosis: Postop fever Patient is a 51 year female admitted to [facility] for right hip replacement for severe right hip osteoarthritis, postoperatively the patient spike a fever that has prompted this infection disease consultation. on today's evaluation that is 08/17/2021, the patient denies having any fever or any chills, patient is feeling better today, the patient pain to the right hip is currently controlled, no chest pain shortness of breath or cough no nausea no vomiting no abdominal pain or diarrhea Objective - Vital Signs Vital signs: Vital Signs Temp 98.5 F 08/17/21 08:00 Pulse 93 08/17/21 08:00 Resp 16 08/17/21 09:46 BP 129/82 08/17/21 08:00 Pulse Ox 96 08/17/21 08:00 Intake & Output 08/16/21 08/17/21 08/17/21 18:59 06:59 18:59 Intake Total 200 Balance 200 Intake: Oral 200 Other: Voiding Method Toilet Toilet Toilet # Voids 3 5 5 - Exam GENERAL DESCRIPTION: A middle-aged female lying in bed in no distress RESPIRATORY SYSTEM: Unlabored breathing , decreased breath sounds at bases HEART: S1 S2 regular rate and rhythm , ABDOMEN: Soft , no tenderness EXTREMITIES: No edema feet - Labs CBC & Chem 7: 08/17/21 10:48 08/16/21 03:49 Labs: Abnormal Lab Results - Last 24 Hours (Table) 08/17/21 08/17/21 08/17/21 Range/Units 04:41 04:41 10:48 RBC 2.25 L 2.72 L (4.10-5.20) X 10*6/uL Hgb 6.1 L* 7.5 L (12.0-15.0) g/dL Hct 20.3 L 24.2 L (37.2-46.3) % MCHC 30.0 L (32.0-37.0) g/dL Total Bilirubin <0.15 L (0.30-1.20) mg/dL Conjugated Bilirubin <0.20 L (0.20-0.40) mg/dL AST 9 L (13-35) U/L C-Reactive Protein 8.90 H (0.00-0.80) mg/dL Total Protein 4.8 L (6.2-8.2) g/dL Albumin 3.1 L (3.8-4.9) g/dL Microbiology - Last 24 Hours (Table) 08/16/21 07:07 Blood Culture - Preliminary Blood No Growth after 24 hours Assessment and Plan (1) Fever Status: Acute Code(s): R50.9 - FEVER, UNSPECIFIED SNOMED Code(s): 135376828 Plan: 1patient with a postoperative fever more likely reactive and possible hematoma at the surgical site as the patient did have significant drop in hemoglobin versus pulmonary atelectasis at the patient currently do not have any obvious focus of infection patient did have normal white count does not look toxic chest x-ray was negative UA negative abdominal soft on clinical examination. 2-the patient fever resolved without antibiotic therapy and did not have any obvious focus of infection more likely reactive versus related to atelectasis, instructed on incentive spirometry and no need for antibiotic on discharge Time with Patient: Less than 30
== END 2021-08-17 17:22 | disposition home health service (06) ==
LOC: OR 06:28 → 4SSUR 11:19 → OR 08-15 11:33
PROVIDERS: ADMIT Orthopaedic Surgery; ATTEND Orthopaedic Surgery
DX: M16.11 Unilateral primary osteoarthritis, right hip (principal); I95.81 Postprocedural hypotension; D62 Acute posthemorrhagic anemia; R50.82 Postprocedural fever; M24.652 Ankylosis, left hip; J44.9 Chronic obstructive pulmonary disease, unspecified; E78.5 Hyperlipidemia, unspecified; K21.9 Gastro-esophageal reflux disease without esophagitis; G47.33 Obstructive sleep apnea (adult) (pediatric); K44.9 Diaphragmatic hernia without obstruction or gangrene; D72.829 Elevated white blood cell count, unspecified; F32.A Depression, unspecified; F41.9 Anxiety disorder, unspecified; Z79.51 Long term (current) use of inhaled steroids; Z79.82 Long term (current) use of aspirin; Z79.899 Other long term (current) drug therapy; Z88.8 Allergy status to other drugs, medicaments and biological substances; Z87.440 Personal history of urinary (tract) infections; Z86.010 Personal history of colon polyps; Z90.710 Acquired absence of both cervix and uterus; Z90.49 Acquired absence of other specified parts of digestive tract; Z98.890 Other specified postprocedural states; Z87.891 Personal history of nicotine dependence; Z82.49 Family history of ischemic heart disease and other diseases of the circulatory system
CPT/HCPCS: 97116 ×3; 97110; 97161; 86900; 86901; 80048 ×2; 80076; 83735 ×2; 85025 ×3; 85027; 86850; 86140 ×2; 81003; 87040 ×2; 88300; 84145 ×2; 73501; 71046; 27130; G0378 ×3; C1776; J2250; J1644; J1100; J2710; J0690 ×2; J2405; J3010; J1170 ×2; J1885; J0330; J2704; C9113

== ENCOUNTER → 2021-10-26 | Outpatient (CLI) | payer OTHER ==
[2021-10-26 14:06] LABS: INR 0.9 (<1.2); Partial Thromboplastin Time 26.1 sec (22.0-30.0); Prothrombin Time 10.4 sec (9.0-12.0)
[2021-10-26 18:51] LABS: Appearance,Urine Clear (Clear); Bilirubin,Urine Negative (Negative); Blood,Urine Negative (Negative); Color,Urine Yellow (Yellow); Ketones,Urine Negative (Negative); Nitrite,Urine Negative (Negative); Specific Gravity,Urine 1.017 (1.001-1.030); Urobilinogen,Urine 0.2 (0.2,1.0)
[2021-10-26 18:56] LABS: Bacteria,Urine 1+ /HPF (None Seen)
[2021-10-26 18:57] LABS: HCT 36.6 % (37.2-46.3); MCH 26.4 pg (27.0-32.0); MCHC 30.1 g/dL (32.0-37.0); Mean Platelet Volume 11.2 fL (9.5-12.2); NRBC Per 100 WBC 0 /100 WBCS (0.0-0.0); Platelet Count 286 X 10*3/uL (140-440); RBC 4.16 X 10*6/uL (4.10-5.20); WBC 4.48 X 10*3/uL (4.50-10.00)
[2021-10-26 19:09] LABS: African American GFR (CKD) 128.4 (60.0-200.0); Albumin 4.4 g/dL (3.8-4.9); Albumin/Globulin Ratio 1.8 (1.60-3.17); Anion Gap 10.1 mmol/L (10.00-18.00); BUN/Creat Ratio 24.65 Ratio (12.00-20.00); Blood Urea Nitrogen 12.5 mg/dL (9.0-27.0); Calcium 9.4 mg/dL (8.7-10.3); Carbon Dioxide 25.8 mmol/L (20.0-27.5); Globulin 2.5 g/dL (1.6-3.3); Non-African American GFR(CKD) 110.8 (60.0-200.0); Potassium 5.3 mmol/L (3.5-5.5); Total Bilirubin 0.3 mg/dL (0.30-1.20); Total Protein 6.9 g/dL (6.2-8.2)
== END | disposition home or self-care (01) ==
LOC: LABPAT 13:02
PROVIDERS: ATTEND Orthopaedic Surgery
DX: Z01.812 Encounter for preprocedural laboratory examination (principal); M16.12 Unilateral primary osteoarthritis, left hip
CPT/HCPCS: 80053; 81001; 85027; 85610; 85730; 87070

== ENCOUNTER 2021-11-04 10:56 | Day surgery (SDC) | payer OTHER ==
[2021-11-02 10:16] VITALS: BMI 39.1
[~2021-11-04 10:56] MED LIST changes: -HYDROmorphone 0.5 MG/0.5 ML SYRINGE IVP PRN; -ONDANSETRON 4 MG/2 ML VIAL IVP ONE; +ROPIVACAINE/EPI/CLONIDINE/KET 50 ML SYRINGE MISCELLANE PRN; +fentaNYL (PF) 50 MCG/ML 2 ML AMP IVP PRN
[2021-11-04] MEDS ORDERED: TRANEXAMIC ACID 1,000 MG in SODIUM CHLORIDE 0.9% 100 ML IVPB ONE (11:00)
[2021-11-04] MEDS: LACTATED RINGERS 1,000 ML IV SCH ×2 (11:11→19:44)
[2021-11-04] MEDS ORDERED: MIDAZOLAM 2 MG/2 ML VIAL IVP ONE (11:54)
[2021-11-04] MEDS ORDERED: fentaNYL (PF) 50 MCG/ML 2 ML AMP IVP ONE (11:54)
[2021-11-04] MEDS ORDERED: HEPARIN SODIUM,PORCINE 10,000 UNIT/ML 1 ML VIAL ONE (12:10)
[2021-11-04] MEDS ORDERED: SUCCINYLCHOLINE CHLORIDE 100 MG/5 ML SYR IV ONE (12:10)
[2021-11-04] MEDS ORDERED: PROPOFOL 10 MG/ML 20 ML VIAL IV ONE (12:10)
[2021-11-04] MEDS ORDERED: TRANEXAMIC ACID IN NACL,ISO-OS 1,000 MG/100 ML BAG ONE (12:10)
[2021-11-04] MEDS ORDERED: LIDOCAINE 2% INJ 20 MG/ML (2 ML VIAL) ONE (12:10)
[2021-11-04] MEDS ORDERED: PHENYLEPHRINE-0.9% NACL SYG 1,000 MCG/10 ML SYRINGE ONE (12:10)
[2021-11-04] MEDS ORDERED: ROPIVACAINE 5 MG/ML 30 ML VIAL ONE (12:10)
[2021-11-04] MEDS ORDERED: GLYCOPYRROLATE 0.2 MG/ML 2 ML VIAL ONE (12:10)
[2021-11-04] MEDS ORDERED: ROCURONIUM 10 MG/ML (5 ML VIAL) IV ONE (12:10)
[2021-11-04] MEDS ORDERED: HYDROmorphone (PF) 1 MG/ML ONE (12:10)
[2021-11-04] MEDS ORDERED: fentaNYL (PF) 50 MCG/ML 2 ML AMP ONE (12:10)
[2021-11-04] MEDS ORDERED: KETAMINE 10 MG/ML 20 ML VIAL ONE (12:10)
[2021-11-04] MEDS ORDERED: SODIUM CHLORIDE 0.9% IRRIG 1,000 ML BTL IRRIGATION ONE (12:10)
[2021-11-04] MEDS ORDERED: LABETALOL 5 MG/ML VIAL MDV ONE (12:10)
[2021-11-04] MEDS ORDERED: MIDAZOLAM 2 MG/2 ML VIAL ONE (12:10)
[2021-11-04] MEDS ORDERED: NEOSTIGMINE 1 MG/ML 10 ML VIAL ONE (12:10)
[2021-11-04] MEDS ORDERED: LACTATED RINGERS 1,000 ML IV ONE (13:36)
[2021-11-04] MEDS ORDERED: NALOXONE 0.4 MG/ML 1 ML VIAL IV PRN (15:25)
[2021-11-04] MEDS ORDERED: HYDROmorphone 1 MG/ML 1 ML SYRINGE IVP PRN (15:25)
[2021-11-04] MEDS ORDERED: hydrOXYzine pamoate 25 MG CAP PO PRN (15:25)
[2021-11-04] MEDS ORDERED: HYDROmorphone 0.5 MG/0.5 ML SYRINGE IVP PRN ×2 (15:25)
[2021-11-04] MEDS ORDERED: HYDROcodone/APAP 5-325MG 1 EACH TAB PO PRN (15:25)
[2021-11-04] MEDS ORDERED: ONDANSETRON 4 MG/2 ML VIAL IVP PRN (15:25)
--- NOTE | 2021-11-04 15:29 | P.OP ---
Date of Procedure: 11/04/21 Preoperative Diagnosis: 1. Severe left hip osteoarthritis 2. BMI 39 Postoperative Diagnosis: Same Procedure(s) Performed: Left direct anterior total hip arthroplasty Implants: 1. Levi Trident II Acetabular Cup, Size #52 2. Levi Accolade II Size # 5 Femoral Stem, Standard Offset 3. Biolox Delta mm femoral head, +0 neck Anesthesia: GETA Surgeon: Diallo Franklin Sales Service Promoter #1: Amelie Zheng Estimated Blood Loss (ml): 700 IV fluids (ml): 1,200 Pathology: none sent Condition: stable Disposition: PACU Indications for Procedure: I had a long discussion with the patient in the office on the potential risks and complications of an elective total hip replacement through a direct anterior approach. She had previously undergone a right total hip replacement by me and did very well with this. She was well aware of the procedure, potential benefits, and risks. Risks discussed include, but are certainly not limited to, risks from anesthesia, superficial infection requiring local wound care or antibiotics, deep amaris-prosthetic joint infection and the treatment required to eradicate infection, intraoperative fracture, postoperative periprosthetic fracture, damage to local blood vessels or nerves particularly the lateral femoral cutaneous nerve, delayed wound healing requiring local wound care or possibly surgical debridement, hip dislocation, leg length discrepancy, soft tissue irritation around the total hip implant such as iliopsoas tendinitis or trochanteric bursitis, wear and osteolysis from the implants, squeaking or audible noises, groin pain, thigh pain, heterotopic ossification, stiffness, aseptic loosening of the implants, dissatisfaction with surgical outcome, need for revision surgery, DVT, PE, swelling of the operative extremity, acute coronary event, stroke, failure to thrive, and possibly loss of life or limb. The patient understands that while these are the most common complications after an elective hip replacement there are certainly other less common complications possible. They were given ample time to ask questions regarding the potential complications of a hip replacement. Following our discussion the patient provided their verbal and written consent to go forward with an elective total hip replacement. Description of Procedure: The patient was identified in the preoperative holding area and the correct hip was marked with my initials. I reviewed the procedure and consent with the patient. All of their questions were answered. The patient was then brought back into the operating room by anesthesia. While on the [facility] anesthesia was administered by the anesthesia team. Preoperative antibiotics and tranexamic acid were also given. After the patient was under anesthesia I examined their ankles to determine their preoperative leg length discrepancy. The skin over the anterior aspect of the hip was shaved to remove hair over the site of planned incision. Both feet and ankles were padded with webril and boots for the [place] were applied. The patient was then carefully transferred onto the [place] table. A perineal post was immediately placed. The arms were placed on arm holders and were well-padded. Both boots were secured to the spars on the [place] table. The patient was positioned so that the pelvis was centered over the post. Nonsterile drapes were applied. A timeout was performed identifying the correct patient, operative extremity, and procedure. At this point fluoroscopy was brought in to take preoperative images of the pelvis and operative hip. Using the standing AP pelvis from the office as a template, a comparable image was obtained with fluoroscopy. A metallic bar was used to create a bi-ischial line for use as a reference to leg length adjustments during the procedure. Global offset was also measured on both the operative and nonoperative leg. Fluoroscopy was then brought out and a pre-scrub using a chlorhexidine scrub brush was performed. The operative limb was then prepped and draped in the standard sterile fashion. An anterior longitudinal incision was made lateral and distal to the ASIS. The skin and subcutaneous tissues were incised sharply. The underlying tensor fascia was identified and incised in its midportion. The fascia was dissected free from the underlying muscle and the muscle belly was retracted. A blunt tipped cobra retractor was placed over the superior neck under the muscle fibers of the gluteus minimus. The deep enveloping fascia of the tensor was incised. The anterior leash of vessels were then identified and cauterized. The fascia between the rectus and the capsule was then incised and the pre-capsular fat was excised. A second Cobra was placed inferior to the neck. The interval between the rectus and iliocapsularis and the hip capsule was developed and a retractor was placed carefully over the anterior rim of the acetabulum. A T-shaped anterior capsulotomy was performed. The superior capsular leaflet was left in place in the inferior capsular flap was excised. The Cobra retractors were placed intracapsularly. We then made a femoral neck osteotomy according to preoperative and intraoperative templating and confirmed the level of the osteotomy using fluoroscopic imaging. The femoral head was removed, passed off to the back table, and sized. The superior capsular flap was excised. Retractors were placed circumferentially exposing the acetabulum. We then circumferentially debrided the acetabulum free of labrum and osteophytes. The pulvinar was removed to fully visualize the cotyloid fossa. We then sequentially reamed to achieve peripheral fit and excellent bleeding subchondral bone. The socket was thoroughly irrigated. The acetabular component was impacted into the appropriate position using fluoroscopy to guide version, inclination, and depth of insertion taking care to have a comparable image of the AP pelvis to the standing image taken in the office. An excellent press-fit was achieved and final position was confirmed using fluoroscopy. The press fit was augmented with bony cancellus dome screws. The liner was then impacted into the socket. Attention was then turned to the femur. The remnant dorsal lateral capsule was excised. The short external rotators were visible and protected. A bone hook was used to confirm appropriate translation of the trochanter away from the acetabulum. The leg was then extended and adducted and the bone hook was used to elevate the femur for broaching. A box osteotome and blunt tipped canal sound was then utilized to gain access to the femoral canal. We then sequentially broached the femur in appropriate anteversion until excellent torsional stability was achieved. The neck cut was brought flush to the trial broach with a calcar planar. A trial neck and head were then placed onto the broach and the hip was atraumatically reduced under direct visualization. External rotation to 90 was performed to assess stability. Fluoroscopy was brought in. An AP and lateral fluoroscopic image of the proximal femur was obtained to assess position and fill of the trial broach. An AP of the pelvis was then obtained and matched to the preoperative image taken. A bi-ischial bar was then placed and measurements were taken to assess changes in length and offset. The hip was then carefully dislocated, the proximal femur was exposed, and the trial implants were removed. The wound and proximal femur was thoroughly irrigated using sterile saline and pulsatile lavage. The final femoral implant was dispensed and gently tapped into place generating an excellent press-fit. The trunnion was cleansed and the final head was tapped into place to engage the Rodney taper. The acetabulum was irrigated and visualized to be free of debris. The hip was carefully reduced. Stability was checked clinically with external rotation to 90 and there was no evidence of instability. Final fluoroscopic images were taken. The wound was then thoroughly irrigated and soaked with a dilute Betadine rinse for 3 minutes. 3 L of sterile saline was irrigated through the wound using pulsatile lavage. Local anesthetic cocktail was injected into the soft tissues around the surgical field. A deep drain was placed. The wound was then closed in layers. A sterile dressing was placed over the surgical incision and drain site. The drap es were taken down and the patient was carefully transferred off of the [place] table. Following removal of the boots the leg lengths felt acceptable. The patient was then taken to recovery room having tolerated the procedure well. Amelie Zheng PA-C was required as a skilled public services assistant for patient positioning, surgical exposure, retraction, placement of implants, and closure of the surgical wound. PLAN: The patient can weight-bear as tolerated on the operative extremity. 2 doses of postoperative antibiotics. DVT prophylaxis with aspirin 81 mg twice a day based on preoperative risk stratification. Physical therapy for gait training. Discontinue drain postoperative day #1 if output is less than 100 mL per shift.
[2021-11-04] MEDS: HYDROmorphone 0.5 MG/0.5 ML SYRINGE IVP PRN ×2 (16:10→16:18)
[2021-11-04] MEDS ORDERED: diphenhydrAMINE 50 MG/ML 1 ML VIAL IVP ONE (16:22)
--- NOTE | 2021-11-04 16:29 | P.ANPRN ---
Procedure Note - Anesthesia - Nerve Block Performed Left Erector Spinae Single Time Out Performed: Yes (1153.) Date of Procedure: 11/04/21 Procedure Start Time: 11:54 Procedure Stop Time: 12:00 Indication: Acute Post-Operative Pain, Requested by Surgeon Specifically requested for management of pain by DrZe: Diallo Franklin Sedation Type: Sedate with meaningful contact maintained Preparation: Sterile Prep Position: Supine Catheter: None Needle Types: Pajunk Needle Gauge: 21 Ultrasound used to visualize needle placement: Yes Ultrasound used to observe medication spread: Yes Injectate: 0.5% Ropivacaine (see comment for volume) (30cc) Blood Aspirated: No Pain Paresthesia on Injection Noted: No Resistance on Injection: Normal Image Stored and Saved: Yes Events: Uneventful and Well Tolerated
[2021-11-04] MEDS ORDERED: SYMBICORT 160-4.5 MCG INHALER INHALATION SCH ×2 (17:20→17:24)
--- NOTE | 2021-11-04 17:58 | HP ---
HISTORY AND PHYSICAL REASON FOR CONSULTATION: Advice regarding hypertension and multiple medical issues requested by Orthopedic Surgery. HISTORY OF PRESENT ILLNESS: This 51-year-old woman with a past medical history of hypertension, hyperlipidemia, being followed by Dr. Dre Collins in the outpatient setting underwent left hip surgery. Postoperatively the patient is slightly drowsy. Pulse ox 92% on room air. There is no history of fever, rigors or chills. No headache, loss of consciousness or seizures. PAST MEDICAL HISTORY: History of hypertension, hyperlipidemia, GERD. HOME MEDICATIONS: Reviewed and they include Pravachol, dose and rest of medications noted. ALLERGIES: CHANTIX. FAMILY HISTORY: History of PE and aneurysm. SOCIAL HISTORY: Depression. Previous history of smoker. REVIEW OF SYSTEMS: Fourteen point review of systems is negative except mentioned earlier. PHYSICAL EXAMINATION: Pulse is 62, blood pressure 130/88, respiration 16. HEENT: Conjunctivae normal. NECK: No JVD. CARDIOVASCULAR: S1, S2 muffled. RESPIRATORY: Breath sounds diminished in the bases. No rhonchi. No crackles. ABDOMEN: Soft, nontender. LEGS status post hip surgery. NERVOUS SYSTEM: No focal deficits. SKIN: No ulcer, rash or bleeding. JOINTS: No active deforming arthropathy. LABS: CBC and coags are normal. ASSESSMENT: 1. Status post left hip total arthroplasty. 2. Hypertension. 3. Hyperlipidemia. 4. Sleep apnea. 5. Family history of pulmonary embolism. RECOMMENDATIONS AND DISCUSSION: Recommend to continue current medications, symptomatic treatment. Otherwise resume the home medications. I would also recommend incentive spirometry. DVT prophylaxis. We will continue to monitor. Closely follow with Orthopedic surgery. Further recommendations to follow. MMODL / IJN: [id number] /
[2021-11-04] MEDS: SYMBICORT 160-4.5 MCG INHALER INHALATION SCH (19:32)
[2021-11-04] MEDS: ALBUTEROL HFA INHALER INHALATION SCH (19:32)
--- NOTE | 2021-11-04 20:23 | XR ---
EXAMINATION TYPE: XR Hip Limited LT, FL guidance operating room DATE OF EXAM: 11/04/2021 CLINICAL HISTORY: Left hip arthroplasty TECHNIQUE: Fluoroscopic guided procedure COMPARISON: X-ray dated 08/14/2021 FINDINGS: Fluoroscopic guidance was provided during the procedure. A total of 1 minute and 9 seconds of fluoroscopic time was utilized during the procedure and 5 spot images were acquired. IMPRESSION: As Above.
[2021-11-04] MEDS: METOPROLOL TARTRATE 50 MG TAB PO SCH (21:57)
[2021-11-04] MEDS: SENNOSIDES-DOCUSATE SODIUM 1 EACH TAB PO SCH (21:57)
[2021-11-04] MEDS: ASPIRIN 81 MG PO SCH (21:57)
[2021-11-04] MEDS: PRAVASTATIN SODIUM 80 MG TAB PO SCH (21:57)
[2021-11-05] MEDS: ALBUTEROL HFA INHALER INHALATION SCH ×5 (00:31→23:58)
[2021-11-05] MEDS: HYDROcodone/APAP 5-325MG 1 EACH TAB PO PRN ×3 (06:15→18:06)
[2021-11-05] MEDS: FERROUS SULFATE 325 MG TAB PO SCH (07:21)
[2021-11-05] MEDS: PANTOPRAZOLE 40 MG TABLET PO SCH (07:21)
[2021-11-05] MEDS: DULoxetine HCL 60 MG CAPSULE.DR PO SCH (07:21)
[2021-11-05] MEDS: ASPIRIN 81 MG PO SCH ×2 (07:22→20:18)
[2021-11-05] MEDS: CHOLECALCIFEROL 25 MCG (1000 IU) TABLET PO SCH (07:22)
[2021-11-05] MEDS: METOPROLOL TARTRATE 50 MG TAB PO SCH ×2 (07:22→20:18)
[2021-11-05] MEDS: SYMBICORT 160-4.5 MCG INHALER INHALATION SCH ×2 (08:21→20:39)
[2021-11-05 10:35] LABS: Basophils # (A) 0.03 X 10*3/uL (0.00-0.10); Basophils % (A) 0.3 %; Eosinophils # (A) 0.06 X 10*3/uL (0.04-0.35); Eosinophils % (A) 0.6 %; HCT 28.4 % (37.2-46.3); HGB 8.5 g/dL (12.0-15.0); Immature Grans, Automated 0.3 %; Lymphocytes # (A) 1.76 X 10*3/uL (0.90-5.00); Lymphocytes % (A) 18.9 %; MCH 26.2 pg (27.0-32.0); MCHC 29.9 g/dL (32.0-37.0); MCV 87.7 fL (80.0-97.0); Mean Platelet Volume 11.3 fL (9.5-12.2); Monocytes # (A) 0.96 X 10*3/uL (0.20-1.00); Monocytes % (A) 10.3 %; NRBC Per 100 WBC 0 /100 WBCS (0.0-0.0); Neutrophils # (A) 6.46 X 10*3/uL (1.80-7.70); Neutrophils % (A) 69.6 %; Platelet Count 223 X 10*3/uL (140-440); RBC 3.24 X 10*6/uL (4.10-5.20); RDW 14.6 % (11.5-14.5)
--- NOTE | 2021-11-05 11:00 | P.PN ---
Subjective Progress Note Date: 11/05/21 This patient is a 51- year old female who is status-post left direct anterior total hip arthroplasty on 11/04/21. Today is post-operative day #1. Patient is examined bedside. She states she is experiencing mild pain in the anterior hip this morning. She has been ambulating to the bathroom. Patient otherwise feels well and denies chest pain, shortness of breath, nausea, vomiting, numbness or tingling of the left lower extremity. Vital signs stable. Objective - Vital Signs Vital signs: Vital Signs Temp 99.0 F 11/05/21 08:00 Pulse 87 11/05/21 08:00 Resp 16 11/05/21 08:00 BP 97/66 11/05/21 08:00 Pulse Ox 95 11/05/21 08:00 FiO2 Intake & Output 11/04/21 11/05/21 11/05/21 18:59 06:59 18:59 Intake Total 2200 Output Total 780 140 Balance 1420 -140 Weight 112.9 kg Intake: IV 2050 Intake, IV Titration 150 Amount Lactated Ringers 1,000 ml 150 @ 20 mls/hr IV .Q24H [facility] Rx#:[id number] Output: Drainage 80 140 Left Hip 80 140 Estimated Blood Loss 700 Other: # Voids 2 - Exam On examination, patient is sitting up in bed in no apparent distress. She is alert and orientated x3. On inspection of the left hip, there is a clean, dry, intact Opsite dressing in place. Hemovac drain in place. Mild swelling of the thigh, thigh is soft and compressible. Patient has good strength and ROM of the left ankle and foot. Motor and sensory function intact LLE. Femoral nerve function intact. The left lower extremity is warm and well perfused. Calf non- tender. - Labs CBC & Chem 7: 11/05/21 06:08 11/04/21 11:29 Labs: Abnormal Lab Results - Last 24 Hours (Table) 11/05/21 Range/Units 06:08 RBC 3.24 L (4.10-5.20) X 10*6/uL Hgb 8.5 L (12.0-15.0) g/dL Hct 28.4 L (37.2-46.3) % MCH 26.2 L (27.0-32.0) pg MCHC 29.9 L (32.0-37.0) g/dL RDW 14.6 H (11.5-14.5) % Assessment and Plan Assessment: Status-post left direct anterior total hip arthroplasty on 11/04/21. Post- operative day #1. Plan: - Weight bear as tolerated on operative extremity with a walker. - Physical therapy for gait and balance training. - Leave Opsite dressing intact. - Pain management as needed. - 2 doses of post-operative antibiotics complete. - Internal medicine for amaris-operative medical management. - Anticipate discharge home tomorrow.
--- NOTE | 2021-11-05 14:17 | PN ---
PROGRESS NOTE DATE OF SERVICE: 11/05/2021 This 57-year-old woman who was admitted after left hip arthroplasty complains of some pain. No chest pain. No palpitations. No fever. PHYSICAL EXAMINATION: Pulse 87, blood pressure 90/60, respirations 16. Chest: Clear to auscultation. Cardiovascular: S1, S2 muffled. Abdomen: Soft. Legs: Status post surgery. Nervous system: No focal deficits. LABS: Reviewed. Hemoglobin 8.5. ASSESSMENT: 1. Status post left hip total arthroplasty. 2. Hypertension. 3. Hyperlipidemia. 4. Sleep apnea. 5. Family history of pulmonary embolism. RECOMMENDATIONS AND DISCUSSION: Recommend to continue current management and symptomatic treatment. Otherwise continue the DVT prophylaxis per Orthopedic surgery. Guarded prognosis. Further recommendations to follow. MMODL / IJN: [id number] /
[2021-11-05] MEDS: SENNOSIDES-DOCUSATE SODIUM 1 EACH TAB PO SCH (20:18)
[2021-11-05] MEDS: PRAVASTATIN SODIUM 80 MG TAB PO SCH (20:18)
[2021-11-06] MEDS: HYDROcodone/APAP 5-325MG 1 EACH TAB PO PRN ×2 (02:12→08:33)
[2021-11-06] MEDS: SYMBICORT 160-4.5 MCG INHALER INHALATION SCH (08:04)
[2021-11-06] MEDS: ALBUTEROL HFA INHALER INHALATION SCH ×2 (08:04→12:02)
[2021-11-06] MEDS: CHOLECALCIFEROL 25 MCG (1000 IU) TABLET PO SCH (08:28)
[2021-11-06] MEDS: FERROUS SULFATE 325 MG TAB PO SCH (08:28)
[2021-11-06] MEDS: PANTOPRAZOLE 40 MG TABLET PO SCH (08:28)
[2021-11-06] MEDS: DULoxetine HCL 60 MG CAPSULE.DR PO SCH (08:29)
[2021-11-06] MEDS: ASPIRIN 81 MG PO SCH (08:29)
[2021-11-06] MEDS: METOPROLOL TARTRATE 50 MG TAB PO SCH (08:29)
--- NOTE | 2021-11-06 14:44 | P.DS ---
Providers Expected date of discharge: 11/06/21 Attending physician: Diallo Franklin Consults: 11/04/21 15:25 Consult Physician Routine Consulting Provider: Sd Lo Consult Reason/Comments: medical management Do you want consulting provider notified?: Yes Primary care physician: Dre Collins [facility] Course: This is a 51-year-old female with known history of degenerative arthritis of the left hip. The patient presents for evaluation. After discussion and consideration patient elects to proceed with direct anterior left total hip arthroplasty. The patient is seen preoperatively by Dr. Collins and cleared for surgery. Patient is admitted to [facility] on 11/04/21 for left total hip arthroplasty. The procedures performed without complication or sequelae. The patient is doing well postoperatively. Labs and vital signs are stable on day of discharge. Patient is examined at bedside this morning with Dr. Franklin. She states the pain in her left hip is well controlled at this time. She has been working with physical therapy and is ambulating with a walker with minimal assistance. She states she feels well and is comfortable being discharged home today. There are no new complaints or concerns that day of discharge. On examination, the patient is sitting up in the bedside chair in no apparent distress. She is alert and oriented 3. On inspection of the left hip, there is a clean, dry, intact OpSite dressing in place. No bleeding or drainage through the dressing. Hemovac drain is removed bedside today. Motor and sensory function is intact of the left lower extremity. Femoral nerve function intact. The left lower extremity is warm and well perfused with brisk capillary refill distally. Calf is nontender. Patient is discharged to home with home health care today in good condition, pending medical clearance. Please see med rec for accurate list of discharge medications. Plan - Discharge Summary Discharge Rx Participant: Yes New Discharge Prescriptions: New Aspirin 81 mg PO BID 30 Days #60 tab Docusate [Colace] 100 mg PO BID #60 capsule HYDROcodone/APAP 5-325MG [[place] 5-325] 1 tab PO Q6HR PRN 7 Days #30 tab PRN Reason: Pain Omeprazole 40 mg PO DAILY 30 Days #30 cap Diclofenac Sodium [Voltaren] 75 mg PO BID 30 Days #60 tab No Action Metoprolol Tartrate [Lopressor] 50 mg PO BID Pravastatin Sodium [Pravachol] 80 mg PO HS Cholecalciferol [Vitamin D3 (25 Mcg = 1000 Iu)] 1,000 unit PO DAILY DULoxetine HCL [Cymbalta] 60 mg PO DAILY Aspirin [Vazalore] 325 mg PO DAILY Diclofenac Sodium [Voltaren] 75 mg PO BID Ferrous Sulfate [Iron (65 MG Elemental)] 325 mg PO DAILY Omeprazole 20 mg PO DAILY Budesonide-Formot 160-4.5 Mcg [Symbicort 160-4.5 Mcg Inhaler] 2 puff INHALATION BID PRN PRN Reason: Shortness Of Breath Albuterol Sulfate [Proair Hfa] 1 - 2 puff INHALATION Q6HR PRN PRN Reason: Shortness Of Breath HYDROcodone/APAP 5-325MG [[place] 5-325] 1 - 2 tab PO Q6HR PRN 7 Days #40 tab PRN Reason: Pain Bactrim(Dose Unknown) 1 tab PO Q12HR Discharge Medication List Metoprolol Tartrate [Lopressor] 50 mg PO BID 03/08/16 [History] Pravastatin Sodium [Pravachol] 80 mg PO HS 03/08/16 [History] Cholecalciferol [Vitamin D3 (25 Mcg = 1000 Iu)] 1,000 unit PO DAILY 03/28/20 [History] Albuterol Sulfate [Proair Hfa] 1 - 2 puff INHALATION Q6HR PRN 08/10/21 [History] Budesonide-Formot 160-4.5 Mcg [Symbicort 160-4.5 Mcg Inhaler] 2 puff INHALATION BID PRN 08/10/21 [History] DULoxetine HCL [Cymbalta] 60 mg PO DAILY 08/10/21 [History] Omeprazole 20 mg PO DAILY 08/10/21 [History] HYDROcodone/APAP 5-325MG [[place] 5-325] 1 - 2 tab PO Q6HR PRN 7 Days #40 tab 08/14/21 [Rx] Aspirin [Vazalore] 325 mg PO DAILY 11/02/21 [History] Bactrim(Dose Unknown) 1 tab PO Q12HR 11/02/21 [History] Diclofenac Sodium [Voltaren] 75 mg PO BID 11/02/21 [History] Ferrous Sulfate [Iron (65 MG Elemental)] 325 mg PO DAILY 11/02/21 [History] Aspirin 81 mg PO BID 30 Days #60 tab 11/06/21 [Rx] Diclofenac Sodium [Voltaren] 75 mg PO BID 30 Days #60 tab 11/06/21 [Rx] Docusate [Colace] 100 mg PO BID #60 capsule 11/06/21 [Rx] HYDROcodone/APAP 5-325MG [[place] 5-325] 1 tab PO Q6HR PRN 7 Days #30 tab 11/06/21 [Rx] Omeprazole 40 mg PO DAILY 30 Days #30 cap 11/06/21 [Rx] Follow up Appointment(s)/Referral(s): [facility], [NON-STAFF] - As Needed ([facility] will call you to schedule your in home physical therapy appointments. ) Diallo Franklin MD [Medical Doctor] - 2 Weeks Patient Instructions/Handouts: Anterior Hip Replacement (DC) Activity/Diet/Wound Care/Special Instructions: Weight bear as tolerated on operative extremity with a walker. Keep operative dressing intact until follow-up appointment. Call the office if dressing becomes saturated or falls off. Take pain medications as needed. Take aspirin 81mg BID x 4 weeks for blood clot prevention. Follow-up in the office in two weeks with Dr. Franklin. Call the office with any questions or concerns, Discharge Disposition: HOME WITH HOME HEALTH SERVICES
[2021-11-06 15:09] VITALS: BP 109/72; PULSE 88; RESP 17; TEMP 98.7
--- NOTE | 2021-11-06 15:36 | P.PN ---
Subjective Progress Note Date: 11/06/21 This is a pleasant 51-year-old female who was recently admitted under orthopedic services and is status post left hip arthroplasty and reports improvement in pain and is anticipating being discharged home. Drain was removed and patient will continue with rehab in the outpatient setting and close outpatient follow- up with orthopedics. Appropriate home medications have been resumed and patient encouraged to continue with incentive spirometer at least 10 times every hour while awake. Recommend follow-up with primary care provider on discharge as well. Patient is afebrile and denies any chest pain or shortness of breath. Patient tolerating diet with no reports of nausea or vomiting noted. Pain management and prophylaxis per orthopedics. Review of systems: Constitutional: No reports of fatigue, fever, or chills Cardiovascular: No reports of chest pain or palpitations Respiratory: No reports of shortness of breath or cough GI: reports of nausea, no reports of of vomiting, patient is passing gas : No reports of dysuria or retention Neurovascular: reports of generalized weakness, reports left hip pain All medications have been reviewed PHYSICAL EXAMINATION: GENERAL: The patient is alert and oriented x4, Well developed, well nourished. HEENT: Pupils are round and equally reacting to light. EOMI. no scleral icterus. No conjunctival pallor. Normocephalic, atraumatic. No pharyngeal erythema. No thyromegaly. CARDIOVASCULAR: S1 and S2 muffled PULMONARY: diminished breath sounds bilaterally with no wheezing or rhonchi noted. ABDOMEN: soft. Nontender on exam. obese. non-distended, normoactive bowel sounds. No palpable organomegaly. MUSCULOSKELETAL: No joint swelling or deformity. EXTREMITIES: No cyanosis, clubbing, or pedal edema. Left hip surgical dressing is intact and drain was removed NEUROLOGICAL: Gross neurological examination did not reveal any focal deficits. Diffuse weakness SKIN: No rashes. Assessment: Status post left hip total arthroplasty Hypertension Hyperlipidemia Sleep apnea Family history of pulmonary embolism GI prophylaxis DVT prophylaxis Full code Plan: Recommend to continue with current medications and management per orthopedic services. Patient to be discharged today per orthopedic services. Patient has been seen and evaluated by PT/OT therapy recommending rehab in the outpatient setting. Patient reports to having support at home and will be discharged home today. Appropriate home medications resumed and recommend patient follow-up with primary care provider on discharge. Recommend continuing with incentive spirometer use at least 10 times every hour while awake also while at home. We will continue to follow during hospitalization with orthopedics. Thank you for this consultation. The impression and plan of care has been dictated by Deloris Sarabia, nurse practitioner as directed. MD Eagle I have performed a history and examination and MDM of this patient, discussed the same with the dictator, and agree with the dictator's assessment and plan as written ,documented as a scribe. Based on total visit time, I have performed more than 50% of the visit. Any additional findings or plans will be noted. Objective - Vital Signs Vital signs: Vital Signs Temp 99.1 F 11/06/21 07:24 Pulse 101 H 11/06/21 07:24 Resp 20 11/06/21 07:24 BP 107/71 11/06/21 07:24 Pulse Ox 98 11/06/21 07:24 FiO2 Intake & Output 11/05/21 11/06/21 11/06/21 18:59 06:59 18:59 Intake Total 1080 Output Total 80 Balance 1000 Intake: Oral 1080 Output: Drainage 80 Left Hip 80 Other: Voiding Method Toilet # Voids 2 - Labs CBC & Chem 7: 11/05/21 06:08 11/04/21 11:29 Labs: Abnormal Lab Results - Last 24 Hours (Table) 11/05/21 Range/Units 06:08 RBC 3.24 L (4.10-5.20) X 10*6/uL Hgb 8.5 L (12.0-15.0) g/dL Hct 28.4 L (37.2-46.3) % MCH 26.2 L (27.0-32.0) pg MCHC 29.9 L (32.0-37.0) g/dL RDW 14.6 H (11.5-14.5) %
== END 2021-11-06 17:50 | disposition home health service (06) ==
LOC: OR 10:56 → 4SSUR 15:11 → OR 11-06 17:50
PROVIDERS: ATTEND Orthopaedic Surgery
DX: M16.12 Unilateral primary osteoarthritis, left hip (principal); G89.18 Other acute postprocedural pain; I10 Essential (primary) hypertension; E78.5 Hyperlipidemia, unspecified; F32.A Depression, unspecified; Z79.51 Long term (current) use of inhaled steroids; Z79.899 Other long term (current) drug therapy; Z79.82 Long term (current) use of aspirin; Z96.641 Presence of right artificial hip joint; Z87.891 Personal history of nicotine dependence; Z82.49 Family history of ischemic heart disease and other diseases of the circulatory system; K21.9 Gastro-esophageal reflux disease without esophagitis; G47.30 Sleep apnea, unspecified; Z88.8 Allergy status to other drugs, medicaments and biological substances
CPT/HCPCS: 94640 ×5; 97530; 97162; 64999; 76942; 86900; 86901; 84132; 85025; 86850; 88300; 73501; 27130; C1776; J2250; J1200; J1100; J2710; J0690 ×2; J2405; J3010; J1170 ×2; J2795; J1885; J2370; J0330; J2704; J2001; 86891

== ENCOUNTER → 2021-11-19 | Outpatient (CLI) | payer OTHER ==
--- NOTE | 2021-11-19 15:57 | US ---
EXAMINATION TYPE: US venous doppler duplex LE DATE OF EXAM: 11/19/2021 2:35 PM COMPARISON: NONE CLINICAL HISTORY: I80.9 PHLEBITIS AND THROMBOPHLEBITIS. BLE Swelling, Recent bilateral hip replacemen ts SIDE PERFORMED: Bilateral TECHNIQUE: The lower extremity deep venous system is examined utilizing real time linear array sonog rell with graded compression, doppler sonography and color-flow sonography. VESSELS IMAGED: Common Femoral Vein Deep Femoral Vein Greater Saphenous Vein * Femoral Vein Popliteal Vein Small Saphenous Vein * Proximal Calf Veins (* superficial vessels) Right Leg: Negative for DVT Left Leg: Negative for DVT IMPRESSION: Grayscale, color doppler, spectral doppler imaging performed of the deep veins of the lo wer extremities. There is normal flow, compressibility, vascular waveforms.
== END | disposition home or self-care (01) ==
LOC: RADUSWWP 14:33
PROVIDERS: ATTEND Orthopaedic Surgery
DX: I80.9 Phlebitis and thrombophlebitis of unspecified site (principal)
CPT/HCPCS: 93970

== ENCOUNTER 2022-04-29 07:00 | Day surgery (SDC) | payer OTHER ==
[2022-04-26 15:02] VITALS: BMI 41.0
--- NOTE | 2022-04-29 06:01 | P.GSHP ---
History of Present Illness H&P Date: 04/29/22 CHIEF COMPLAINT: GERD and colon screen HISTORY OF PRESENT ILLNESS: The patient is a 52-year-old female who presents with gastroesophageal reflux disease and need for colon screen. Upper and lower endoscopy were offered for further evaluation and management. PAST MEDICAL HISTORY: Please see list. PAST SURGICAL HISTORY: Please see list. MEDICATIONS: Please see list. ALLERGIES: Please see list. SOCIAL HISTORY: No illicit drug use FAMILY HISTORY: No reports of Crohn disease or ulcerative colitis. REVIEW OF ORGAN SYSTEMS: CONSTITUTIONAL: No reports of fevers or chills. GI: Denies any blood in stools or constipation. PHYSICAL EXAM: VITAL SIGNS: Stable GENERAL: Well-developed pleasant in no acute distress. HEENT: No scleral icterus. Extraocular movements grossly intact. Moist buccal mucosa. NECK: Supple without lymphadenopathy. CHEST: Unlabored respirations. Equal bilateral excursions. CARDIOVASCULAR: Regular rate and rhythm. Distal 2+ pulses. ABDOMEN: Soft, nondistended. MUSCULOSKELETAL: No clubbing, cyanosis, or edema. ASSESSMENT: 1. Gastroesophageal reflux disease 2. Colon screen. PLAN: 1. Recommend proceeding with an upper and lower endoscopy Past Medical History Past Medical History: Asthma, COPD, GERD/Reflux, Hyperlipidemia, Hypertension, Musculoskeletal Disorder, Osteoarthritis (OA), Sleep Apnea/CPAP/BIPAP Additional Past Medical History / Comment(s): USES CPAP MACHINE. hx. numerous colon polyps. questionable asthma vs COPD has been on inhalers since possible covid. chronic lower back pain and shoulder History of Any Multi-Drug Resistant Organisms: None Reported Past Surgical History: Appendectomy, Hysterectomy, Orthopedic Surgery, Tonsillectomy, Uterine Ablation Additional Past Surgical History / Comment(s): D&C. COLONOSCOPY/EGD. Bilateral hip replacements Past Anesthesia/Blood Transfusion Reactions: No Reported Reaction Smoking Status: Former smoker - Past Family History Mother Additional Family Medical History / Comment(s): DIES FROM ANEURYSM Father Family Medical History: Pulmonary Embolus Medications and Allergies Home Medications Medication Instructions Recorded Confirmed Type Metoprolol Tartrate [Lopressor] 50 mg PO BID 03/08/16 04/26/22 History Pravastatin Sodium [Pravachol] 80 mg PO HS 03/08/16 04/26/22 History Cholecalciferol [Vitamin D3 (25 1,000 unit PO DAILY 03/28/20 04/26/22 History Mcg = 1000 Iu)] Albuterol Sulfate [Proair Hfa] 1 - 2 puff INHALATION Q6HR PRN 08/10/21 04/26/22 History Budesonide-Formot 160-4.5 Mcg 2 puff INHALATION BID 08/10/21 04/26/22 History [Symbicort 160-4.5 Mcg Inhaler] DULoxetine HCL [Cymbalta] 60 mg PO DAILY 08/10/21 04/26/22 History Omeprazole 20 mg PO DAILY 08/10/21 04/26/22 History HYDROcodone/APAP 5-325MG [Abie 1 - 2 tab PO Q6HR PRN 7 Days #40 08/14/21 04/26/22 Rx 5-325] tab Aspirin [Vazalore] 325 mg PO DAILY 11/02/21 04/26/22 History Diclofenac Sodium [Voltaren] 75 mg PO BID 11/02/21 04/26/22 History Docusate [Colace] 100 mg PO BID #60 capsule 11/06/21 04/26/22 Rx Allergies Allergy/AdvReac Type Severity Reaction Status Date / Time varenicline [From Chantix] Allergy Rash/Hives Verified 04/26/22 14:53
[~2022-04-29 07:00] MED LIST changes: -ACETAMINOPHEN TAB 500 MG TAB PO PRN; -DEXAMETHASONE SOD PHOSPHATE 10 MG/ML 1 ML VIAL IV PRN; -DEXAMETHASONE SOD PHOSPHATE 4 MG/ML 1 ML VIAL IV ONE; -DOCUSATE 100 MG CAP PO PRN; -FAMOTIDINE 20 MG/2 ML VIAL IVP PRN; -KETOROLAC 15 MG/ML 1 ML VIAL IVP PRN; +LACTATED RINGERS 1,000 ML IV SCH; -LIDOCAINE 1% (10MG/ML) FOR IV START INTRADERMA PRN; -MIDAZOLAM 2 MG/2 ML VIAL IV PRN; -ONDANSETRON 4 MG/2 ML VIAL IVP PRN; -ROPIVACAINE/EPI/CLONIDINE/KET 50 ML SYRINGE MISCELLANE PRN; -TRANEXAMIC ACID IN NACL,ISO-OS 1,000 MG in SALINE 1 100ML.BAG IVPB PRN; -fentaNYL (PF) 50 MCG/ML 2 ML AMP IVP PRN; -oxyCODONE ER 10 MG TAB.ER.12H PO PRN
[2022-04-29 07:24] VITALS: TEMP 97.1
[2022-04-29] MEDS ORDERED: PROPOFOL 10 MG/ML 20 ML VIAL IV ONE (08:01)
[2022-04-29] MEDS ORDERED: LIDOCAINE 2% INJ 20 MG/ML (2 ML VIAL) ONE (08:01)
--- NOTE | 2022-04-29 08:14 | P.PCN ---
Date of Procedure: 04/29/22 Description of Procedure: PREOPERATIVE DIAGNOSIS: Gastroesophageal reflux disease. Morbid obesity. POSTOPERATIVE DIAGNOSIS: Gastroesophageal reflux disease. Morbid obesity. Gastritis. OPERATION: Esophagogastroduodenoscopy with biopsies along antrum and duodenum SURGEON: Kalani Long MD ANESTHESIA: MAC. INDICATIONS: The patient is a 52-year-old female who presents with reflux disease. Benefits and risks of the procedure were described. Informed consent was obtained. DESCRIPTION: The patient was brought into the endoscopy suite and laid in the left lateral decubitus position. An Olympus gastroscope was passed along the posterior oropharynx down to the distal esophagus where the squamocolumnar junction was encountered at 40 cm from the incisors. The stomach was entered and no bile reflux was found. Additional findings are listed below. Biopsies with cold forceps were obtained of the antrum. The first through third portion of the duodenum was examined. Retroflexion of the scope confirmed Hill grade 3 lower esophageal valve. The squamocolumnar junction demonstrated LA grade B erosive esophagitis. The stomach was desufflated. The patient tolerated the procedure well. FINDINGS: Squamocolumnar junction 40 cm from the incisors. Diaphragmatic hiatus at 40 cm. Hill grade 3 lower esophageal valve. LA grade B erosive esophagitis. Biopsies obtained of duodenum Chronic gastritis RECOMMENDATIONS: Upper endoscopy as needed.
--- NOTE | 2022-04-29 08:39 | P.PCN ---
Date of Procedure: 04/29/22 Description of Procedure: PREOPERATIVE DIAGNOSIS: Colonoscopy screening. POSTOPERATIVE DIAGNOSIS: Colonoscopy screening. Diverticulosis, scattered. OPERATION: Colonoscopy to the cecum, ileocecal valve SURGEON: Kalani Long MD. ANESTHESIA: MAC. INDICATIONS: The patient is a 52-year-old female who presents for colonoscopy screening. Benefits and risks were described and informed consent was obtained. DESCRIPTION OF PROCEDURE: The patient had undergone Miralax/Gatorade prep. The patient had been brought into the operating room and laid in the left lateral decubitus position. After adequate intravenous sedation, the rectum was examined with 2% lidocaine jelly. External hemorrhoids were encountered. The rectal tone was within normal limits. No lesions were palpated in the rectal vault. An Olympus colonoscope was advanced until the cecum, ileocecal valve were clearly viewed. The prep was excellent. Scattered diverticulosis was encountered. No colonic polyps were found. No evidence of focal colitis was found. Retroflexion of the scope demonstrated grade 3 internal hemorrhoids without active bleeding or inflammation. The colon was desufflated. The patient had tolerated the procedure well. Withdrawal time was over 6 minutes. FINDINGS: Aronchick preparation quality scale 1+ (1-5) Internal hemorrhoids, grade 3 External prolapsed hemorrhoids, grade 3 No arteriovenous malformations. No adenomatous polyps. No focal colitis. Sigmoid diverticulosis RECOMMENDATIONS: Lower endoscopy 10 years, 2031 Plan - Discharge Summary New Discharge Prescriptions: Continue Metoprolol Tartrate [Lopressor] 50 mg PO BID Pravastatin Sodium [Pravachol] 80 mg PO HS Cholecalciferol [Vitamin D3 (25 Mcg = 1000 Iu)] 1,000 unit PO DAILY DULoxetine HCL [Cymbalta] 60 mg PO DAILY Aspirin [Vazalore] 325 mg PO DAILY Diclofenac Sodium [Voltaren] 75 mg PO BID Docusate [Colace] 100 mg PO BID #60 capsule Omeprazole 20 mg PO DAILY Budesonide-Formot 160-4.5 Mcg [Symbicort 160-4.5 Mcg Inhaler] 2 puff INHALATION BID Albuterol Sulfate [Proair Hfa] 1 - 2 puff INHALATION Q6HR PRN PRN Reason: Shortness Of Breath HYDROcodone/APAP 5-325MG [[place] 5-325] 1 - 2 tab PO Q6HR PRN 7 Days #40 tab PRN Reason: Pain Discharge Medication List Metoprolol Tartrate [Lopressor] 50 mg PO BID 03/08/16 [History] Pravastatin Sodium [Pravachol] 80 mg PO HS 03/08/16 [History] Cholecalciferol [Vitamin D3 (25 Mcg = 1000 Iu)] 1,000 unit PO DAILY 03/28/20 [History] Albuterol Sulfate [Proair Hfa] 1 - 2 puff INHALATION Q6HR PRN 08/10/21 [History] Budesonide-Formot 160-4.5 Mcg [Symbicort 160-4.5 Mcg Inhaler] 2 puff INHALATION BID 08/10/21 [History] DULoxetine HCL [Cymbalta] 60 mg PO DAILY 08/10/21 [History] Omeprazole 20 mg PO DAILY 08/10/21 [History] HYDROcodone/APAP 5-325MG [[place] 5-325] 1 - 2 tab PO Q6HR PRN 7 Days #40 tab 08/14/21 [Rx] Aspirin [Vazalore] 325 mg PO DAILY 11/02/21 [History] Diclofenac Sodium [Voltaren] 75 mg PO BID 11/02/21 [History] Docusate [Colace] 100 mg PO BID #60 capsule 11/06/21 [Rx] Follow up Appointment(s)/Referral(s): Kalani Long MD [STAFF PHYSICIAN] - 05/11/22 Patient Instructions/Handouts: Diverticulosis Diet (GEN), Diverticulosis (GEN) Activity/Diet/Wound Care/Special Instructions: Repeat colonoscopy 2031 Discharge Disposition: HOME SELF-CARE
[2022-04-29 08:55] VITALS: RESP 18
[2022-04-29 09:16] VITALS: BP 116/77; PULSE 64
== END 2022-04-29 09:27 | disposition home or self-care (01) ==
LOC: ORWHC2ENDO 07:00
PROVIDERS: ATTEND Surgery Plastic and Reconstructive Surgery
DX: Z12.11 Encounter for screening for malignant neoplasm of colon (principal); K57.30 Diverticulosis of large intestine without perforation or abscess without bleeding; E66.01 Morbid (severe) obesity due to excess calories; K29.50 Unspecified chronic gastritis without bleeding; K21.9 Gastro-esophageal reflux disease without esophagitis; Z86.010 Personal history of colon polyps; E78.5 Hyperlipidemia, unspecified; G47.30 Sleep apnea, unspecified; I10 Essential (primary) hypertension; J44.9 Chronic obstructive pulmonary disease, unspecified; K29.70 Gastritis, unspecified, without bleeding; M19.90 Unspecified osteoarthritis, unspecified site; Z79.1 Long term (current) use of non-steroidal anti-inflammatories (NSAID); Z79.51 Long term (current) use of inhaled steroids; Z79.82 Long term (current) use of aspirin; Z87.19 Personal history of other diseases of the digestive system; Z79.899 Other long term (current) drug therapy; Z87.891 Personal history of nicotine dependence; Z90.49 Acquired absence of other specified parts of digestive tract
CPT/HCPCS: 45378; 43239; J2704; J2001; 88305

== ENCOUNTER → 2022-06-08 | Outpatient (CLI) | payer OTHER ==
--- NOTE | 2022-06-08 19:49 | CT ---
EXAMINATION TYPE: CT abdomen pelvis w con CT DLP: 2049.8 mGycm, Automated exposure control for dose reduction was used. DATE OF EXAM: 06/08/2022 4:42 PM COMPARISON: None CLINICAL INDICATION:Female, 52 years old with history of K57.32; abdominal pain and pressure TECHNIQUE: Axial CT of the abdomen and pelvis. Sagittal and coronal reformats were created on a [employer] workstation. Contrast used:70cc mL of Isovue 300 with IV Contrast, Oral contrast used: with Oral Contrast FINDINGS: LOWER CHEST: Unremarkable ABDOMEN LIVER: Unremarkable GALLBLADDER AND BILE DUCTS: Unremarkable. PANCREAS: Unremarkable. SPLEEN: Unremarkable. ADRENAL GLANDS: Unremarkable. KIDNEYS AND URETERS: No evidence of hydronephrosis or renal calculus. PELVIS Limited evaluation secondary to streak artifact from hip prostheses. BLADDER: Unremarkable REPRODUCTIVE: Unremarkable. ABDOMEN & PELVIS STOMACH AND BOWEL: No evidence of bowel obstruction. Redundant colon with moderate to large stool bur den. The colon is positioned between the liver and the anterior abdominal wall. PERITONEUM/RETROPERITONEUM: No evidence of pneumoperitoneum or free fluid. . Mild atherosclerosis of the arterial vasculature. VASCULATURE: No evidence of aortic aneurysm. MUSCULOSKELETAL: No acute osseous abnormalities, bilateral hip arthroplasty changes. Hardware appears in appropriate position. LYMPH NODES: No gross evidence for lymphadenopathy. SOFT TISSUE/ABDOMINAL WALL: Left fat-containing inguinal hernia. IMPRESSION: 1. Redundant colon with moderate to large stool burden. 2. No acute abdominal process. 3. Left fat-containing inguinal hernia.
== END | disposition home or self-care (01) ==
LOC: RADCTMAIN 14:44
PROVIDERS: ATTEND Surgery Plastic and Reconstructive Surgery
DX: K40.90 Unilateral inguinal hernia, without obstruction or gangrene, not specified as recurrent (principal); K57.32 Diverticulitis of large intestine without perforation or abscess without bleeding; R19.5 Other fecal abnormalities
CPT/HCPCS: 74177; Q9967

== ENCOUNTER 2023-05-17 22:11 | Emergency (ER) | payer OTHER ==
[2023-05-17 22:51] LABS: ALT 45 U/L (4-34); AST 44 U/L (14-36); African American GFR (CKD) >90 (>60 ml/min/1.73 sqM); Albumin 4.4 g/dL (3.5-5.0); Alkaline Phosphatase 114 U/L (38-126); Anion Gap 15 mmol/L; Blood Urea Nitrogen 10 mg/dL (7-17); Calcium 9.4 mg/dL (8.4-10.2); Carbon Dioxide 24 mmol/L (22-30); Chloride 97 mmol/L (98-107); Glucose 111 mg/dL (74-99); Non-African American GFR(CKD) >90 (>60 ml/min/1.73 sqM); Potassium 4.2 mmol/L (3.5-5.1); Sodium 136 mmol/L (137-145); Total Bilirubin 0.7 mg/dL (0.2-1.3); Total Protein 7.4 g/dL (6.3-8.2)
[2023-05-17 22:59] LABS: INR 0.9 (<1.2); Partial Thromboplastin Time 25.1 sec (22.0-30.0); Prothrombin Time 10.3 sec (10.0-12.5)
[2023-05-17 23:06] LABS: Basophils # (A) 0.1 k/uL (0-0.2); Basophils % (A) 1 %; Eosinophils # (A) 0.2 k/uL (0-0.7); Eosinophils % (A) 2 %; HCT 36.9 % (34.0-46.0); HGB 12.4 gm/dL (11.4-16.0); Lymphocytes % (A) 19 %; MCH 28.2 pg (25.0-35.0); MCHC 33.5 g/dL (31.0-37.0); MCV 84.1 fL (80.0-100.0); Mean Platelet Volume 7.5; Monocytes # (A) 0.6 k/uL (0-1.0); Monocytes % (A) 6 %; Neutrophils # (A) 7.8 k/uL (1.3-7.7); Neutrophils % (A) 72 %; Platelet Count 313 k/uL (150-450); RBC 4.39 m/uL (3.80-5.40); RDW 14.6 % (11.5-15.5); WBC 10.8 k/uL (3.8-10.6)
--- NOTE | 2023-05-17 23:18 | XR ---
EXAM: XR Chest, 2 Views CLINICAL HISTORY: ITS.REASON XR Reason: chest pain TECHNIQUE: Frontal and lateral views of the chest. COMPARISON: No relevant prior studies available. FINDINGS: Lungs: No consolidation. No overt edema. Mild atelectasis in the left midlung. Pleural space: No pleural effusion. No pneumothorax. Heart: Unremarkable. No cardiomegaly. Bones/joints: Unremarkable. No fracture or malalignment. IMPRESSION: No acute cardiopulmonary abnormality.
--- NOTE | 2023-05-18 01:28 | ED ---
General Adult HPI - General Chief complaint: Recheck/Abnormal Lab/Rx Stated complaint: Hypertension Time Seen by Provider: 05/18/23 01:24 Source: patient, RN notes reviewed Mode of arrival: wheelchair Limitations: no limitations - History of Present Illness Initial comments: 53-year-old female who presents the emergency department with a chief complaint of hypertension. Patient reports that she got in argument at home with her and is instructed to check her blood pressure. She reports readings as high as 200s over 100. She reports that this is not normal for her. She is also endorses some left-sided chest pain that is worse with movement she has arthritis in her shoulders. Denies any headache, vision changes, chest pain, shortness of breath, nausea or vomiting. Patient reports that she takes daily Lopressor and amlodipine her blood pressure management however she did not take her medication today. - Related Data Home Medications Medication Instructions Recorded Confirmed Metoprolol Tartrate [Lopressor] 50 mg PO BID 03/08/16 04/29/22 Pravastatin Sodium [Pravachol] 80 mg PO HS 03/08/16 04/29/22 Cholecalciferol [Vitamin D3 (25 1,000 unit PO DAILY 03/28/20 04/26/22 Mcg = 1000 Iu)] Albuterol Sulfate [Proair Hfa] 1 - 2 puff INHALATION Q6HR PRN 08/10/21 04/26/22 Budesonide-Formot 160-4.5 Mcg 2 puff INHALATION BID 08/10/21 04/26/22 [Symbicort 160-4.5 Mcg Inhaler] DULoxetine HCL [Cymbalta] 60 mg PO DAILY 08/10/21 04/29/22 Omeprazole 20 mg PO DAILY 08/10/21 04/29/22 Aspirin [Vazalore] 325 mg PO DAILY 11/02/21 04/26/22 Diclofenac Sodium [Voltaren] 75 mg PO BID 11/02/21 04/26/22 Previous Rx's Medication Instructions Recorded HYDROcodone/APAP 5-325MG [[place] 1 - 2 tab PO Q6HR PRN 7 Days #40 08/14/21 5-325] tab Docusate [Colace] 100 mg PO BID #60 capsule 11/06/21 Allergies Allergy/AdvReac Type Severity Reaction Status Date / Time varenicline [From Chantix] Allergy Rash/Hives Verified 05/17/23 22:20 Review of Systems ROS Statement: Those systems with pertinent positive or pertinent negative responses have been documented in the HPI. ROS Other: All systems not noted in ROS Statement are negative. Past Medical History Past Medical History: Asthma, COPD, GERD/Reflux, Hyperlipidemia, Hypertension, Musculoskeletal Disorder, Osteoarthritis (OA), Sleep Apnea/CPAP/BIPAP Additional Past Medical History / Comment(s): USES CPAP MACHINE. hx. numerous colon polyps. questionable asthma vs COPD has been on inhalers since possible covid. chronic lower back pain and shoulder History of Any Multi-Drug Resistant Organisms: None Reported Past Surgical History: Appendectomy, Hysterectomy, Orthopedic Surgery, Tonsillectomy, Uterine Ablation Additional Past Surgical History / Comment(s): D&C. COLONOSCOPY/EGD. Bilateral hip replacements Past Anesthesia/Blood Transfusion Reactions: No Reported Reaction Past Psychological History: No Psychological Hx Reported Smoking Status: Former smoker Past Alcohol Use History: Occasional Past Drug Use History: None Reported - Past Family History Mother Additional Family Medical History / Comment(s): DIES FROM ANEURYSM Father Family Medical History: Pulmonary Embolus General Exam - General Exam Comments Initial Comments: General: Alert, in no acute distress, obese Head: atraumatic normocephalic. Eyes PERRL, EOMI intact, mucous membranes moist Respiratory: Lungs clear to auscultation bilaterally Cardiovascular: Heart rate regular rate Abdominal: Soft without guarding or rebound Extremities: Normal inspection with full range of motion and normal capillary refill Neuroogic: alert and oriented 3, CN II-XII intact, able to ambulate with steady gait Skin: warm dry and intact with normal color Limitations: no limitations Course Vital Signs 05/17/23 05/18/23 05/18/23 22:14 01:26 02:24 Temperature 98.7 F 98.9 F Pulse Rate 85 86 88 Respiratory 22 20 20 Rate Blood Pressure 158/92 150/87 159/81 O2 Sat by Pulse 95 96 95 Oximetry - Reevaluation(s) Reevaluation #1: 05/18/23 01:25 Patient updated on results. VS recheck. Blood pressure is 150/87. Patient in no signs of distress. Reevaluation #2: 05/18/23 02:31 Patient reevaluated. Patient reports no symptoms evaluation. Aware awaiting second troponin results. Reevaluation #3: 05/18/23 02:55 Patient updated on results. Agreeable with the plan for discharge home. EKG Findings - EKG Comments: EKG Findings:: I interpreted the following: EKG performed at 22:23 rate 78bpm NSR. rate 78 bpm, TN interval, 163, QRS duration 104, Qt/Qtc 359/392 Medical Decision Making - Medical Decision Making Was pt. sent in by a medical professional or institution (, [facility], [facility], urgent care, hospital, or [facility]...) When possible be specific @ -[No] Did you speak to anyone other than the patient for history (EMS, parent, family, police, friend...)? What history was obtained from this source @ -[No] Did you review nursing and triage notes (agree or disagree)? Why? @ -[I reviewed and agree with nursing and triage notes] Were old charts reviewed (outside hosp., previous admission, EMS record, old EKG, old radiological studies, urgent care reports/EKG's, [facility] records)? Report findings @ -[No old charts were reviewed] Differential Diagnosis (chest pain, altered mental status, abdominal pain women, abdominal pain men, vaginal bleeding, weakness, fever, dyspnea, syncope, headache, dizziness, GI bleed, back pain, seizure, CVA, palpatations, mental health, musculoskeletal)? @ -[not applicable] EKG interpreted by me (3pts min.). @ -[As above] X-rays interpreted by me (1pt min.). @ -Negative for any cardiomegaly or pleural consolidation CT interpreted by me (1pt min.). @ -[None done] U/S interpreted by me (1pt. min.). @ -[None done] What testing was considered but not performed or refused? (CT, X-rays, U/S, labs)? Why? @ -[None] What meds were considered but not given or refused? Why? @ -[None] Did you discuss the management of the patient with other professionals (professionals i.e. [facility] Campbell, [facility], lab, RT, psych nurse, social science professor, car repossessor, teacher, tactical response group officer, casey saw operator)? Give summary @ -[No] Was smoking cessation discussed for >3mins.? @ -[No] Was critical care preformed (if so, how long)? @ -[No] Were there social determinants of health that impacted care today? How? (Homeles sness, low income, unemployed, alcoholism, drug addiction, transportation, low edu. Level, literacy, decrease access to med. care, half-way, rehab)? @ -[No] Was there de-escalation of care discussed even if they declined (Discuss DNR or withdrawal of care, Hospice)? DNR status @ -[No] What co-morbidities impacted this encounter? (DM, HTN, Smoking, COPD, CAD, Cancer, CVA, ARF, Chemo, Hep., AIDS, mental health diagnosis, sleep apnea, morbid obesity)? @ -[None] Was patient admitted / discharged? Hospital course, mention meds given and route, prescriptions, significant lab abnormalities, going to OR and other pertinent info. @ --Discharged 53 -year-old female who presents the emergency department with HTN. Patient had a thorough history and physical exam performed. There are no neurologic focal deficits. Heart rate is regular rate and rhythm. Lungs are clear to auscultation bilaterally abdomen is soft and nontender. Patient had laboratory studies which were essentially unremarkable including 2 negative troponin studies. Patient's blood pressure upon arrival is 130s over 80s. Patient was provided single dose of metoprolol. Patient denies any active symptoms upon discharge. I discussed results in detail the patient verbalized understanding all questions were addressed. Return precautions were discussed at length. Educated on the importance of follow-up with Primary care physician in 1-2 days. Discharged in stable condition. Case is discussed with Dr. Pinedo , ED attending who agrees with plan of care Undiagnosed new problem with uncertain prognosis? @ -[No] Drug Therapy requiring intensive monitoring for toxicity (Heparin, Nitro, Insulin, Cardizem)? @ -[No] Were any procedures done? @ -[No] Diagnosis/symptom? @ -HTN Acute, or Chronic, or Acute on Chronic? @ -Acute Uncomplicated (without systemic symptoms) or Complicated (systemic symptoms)? @ -Uncomplicated Side effects of treatment? @ -[No] Exacerbation, Progression, or Severe Exacerbation? @ -[No] Poses a threat to life or bodily function? How? (Chest pain, [place], [place], pneumonia, PE, COPD, DKA, ARF, appy, cholecystitis, CVA, Diverticulitis, Homicidal, Suicidal, threat to staff... and all critical care pts) @ -Low likelihood - Lab Data Result diagrams: 05/17/23 22:28 05/17/23 22:28 Lab Results 05/17/23 05/17/23 05/17/23 Range/Units 22:28 22:28 22:28 WBC 10.8 H (3.8-10.6) k/uL RBC 4.39 (3.80-5.40) m/uL Hgb 12.4 (11.4-16.0) gm/dL Hct 36.9 (34.0-46.0) % MCV 84.1 (80.0-100.0) fL MCH 28.2 (25.0-35.0) pg MCHC 33.5 (31.0-37.0) g/dL RDW 14.6 (11.5-15.5) % Plt Count 313 (150-450) k/uL MPV 7.5 Neutrophils % 72 % Lymphocytes % 19 % Monocytes % 6 % Eosinophils % 2 % Basophils % 1 % Neutrophils # 7.8 H (1.3-7.7) k/uL Lymphocytes # 2.0 (1.0-4.8) k/uL Monocytes # 0.6 (0-1.0) k/uL Eosinophils # 0.2 (0-0.7) k/uL Basophils # 0.1 (0-0.2) k/uL PT 10.3 (10.0-12.5) sec INR 0.9 (<1.2) APTT 25.1 (22.0-30.0) sec Sodium 136 L (137-145) mmol/L Potassium 4.2 (3.5-5.1) mmol/L Chloride 97 L (98-107) mmol/L Carbon Dioxide 24 (22-30) mmol/L Anion Gap 15 mmol/L BUN 10 (7-17) mg/dL Creatinine 0.38 L (0.52-1.04) mg/dL Est GFR (CKD-EPI)AfAm >90 (>60 ml/min/1.73 sqM) Est GFR (CKD-EPI)NonAf >90 (>60 ml/min/1.73 sqM) Glucose 111 H (74-99) mg/dL Calcium 9.4 (8.4-10.2) mg/dL Total Bilirubin 0.7 (0.2-1.3) mg/dL AST 44 H (14-36) U/L ALT 45 H (4-34) U/L Alkaline Phosphatase 114 (38-126) U/L Troponin I (0.000-0.034) ng/mL Total Protein 7.4 (6.3-8.2) g/dL Albumin 4.4 (3.5-5.0) g/dL 05/17/23 05/18/23 Range/Units 22:28 01:43 WBC (3.8-10.6) k/uL RBC (3.80-5.40) m/uL Hgb (11.4-16.0) gm/dL Hct (34.0-46.0) % MCV (80.0-100.0) fL MCH (25.0-35.0) pg MCHC (31.0-37.0) g/dL RDW (11.5-15.5) % Plt Count (150-450) k/uL MPV Neutrophils % % Lymphocytes % % Monocytes % % Eosinophils % % Basophils % % Neutrophils # (1.3-7.7) k/uL Lymphocytes # (1.0-4.8) k/uL Monocytes # (0-1.0) k/uL Eosinophils # (0-0.7) k/uL Basophils # (0-0.2) k/uL PT (10.0-12.5) sec INR (<1.2) APTT (22.0-30.0) sec Sodium (137-145) mmol/L Potassium (3.5-5.1) mmol/L Chloride (98-107) mmol/L Carbon Dioxide (22-30) mmol/L Anion Gap mmol/L BUN (7-17) mg/dL Creatinine (0.52-1.04) mg/dL Est GFR (CKD-EPI)AfAm (>60 ml/min/1.73 sqM) Est GFR (CKD-EPI)NonAf (>60 ml/min/1.73 sqM) Glucose (74-99) mg/dL Calcium (8.4-10.2) mg/dL Total Bilirubin (0.2-1.3) mg/dL AST (14-36) U/L ALT (4-34) U/L Alkaline Phosphatase (38-126) U/L Troponin I <0.012 <0.012 (0.000-0.034) ng/mL Total Protein (6.3-8.2) g/dL Albumin (3.5-5.0) g/dL Disposition Clinical Impression: HTN (hypertension) Disposition: HOME SELF-CARE Condition: Stable Instructions (If sedation given, give patient instructions): Chronic Hypertension (ED) Additional Instructions: PLease take blood pressure medications as prescribed Please take blood pressure in the morning and at night Please return to the nearest emergency department if chest pain, shortness of breath, or persistent hypertension or headache develop Is patient prescribed a controlled substance at d/c from ED?: No Referrals: Dre Collins DO [Primary Care Provider] - 1-2 days Time of Disposition: 02:49
[2023-05-18] MEDS ORDERED: METOPROLOL TARTRATE 50 MG TAB PO STA (01:29)
[2023-05-18 02:35] VITALS: RESP 20; TEMP 98.9
[2023-05-18 03:20] VITALS: BP 150/90; PULSE 78
== END 2023-05-18 03:15 | disposition home or self-care (01) ==
LOC: EC 22:11
DX: I10 Essential (primary) hypertension (principal); G47.30 Sleep apnea, unspecified; J44.89 Other specified chronic obstructive pulmonary disease; M19.90 Unspecified osteoarthritis, unspecified site; K21.9 Gastro-esophageal reflux disease without esophagitis; E78.5 Hyperlipidemia, unspecified; Z87.891 Personal history of nicotine dependence; Z88.8 Allergy status to other drugs, medicaments and biological substances; Z79.1 Long term (current) use of non-steroidal anti-inflammatories (NSAID); Z79.51 Long term (current) use of inhaled steroids; Z79.899 Other long term (current) drug therapy; Z79.82 Long term (current) use of aspirin
CPT/HCPCS: 36415; 71046; 80053; 84484; 85025; 85610; 85730; 93005; 99283

== ENCOUNTER → 2023-06-06 | Outpatient (CLI) | payer OTHER ==
--- NOTE | 2023-06-07 10:15 | CA ---
Transthoracic Echo Report Name: Ginger Baeza Age: 53 Gender: F : 1970 Exam Date: 06/06/2023 16:15 Exam Location: [facility] Ht (in): 67 Wt (lb): 350 Ordering Physician: Dre Collins DO Attending/Referring Phys: Blood Collector Elizabeth Sung RDCS Procedure CPT: Indications: R07.9 CHEST PAIN Cardiac Hx: Technical Quality: Good Contrast 1: Total Dose (mL): Contrast 2: Total Dose (mL): MEASUREMENTS (Male / Female) Normal Values 2D ECHO LV Diastolic Diameter PLAX 5.6 cm 4.2 - 5.9 / 3.9 - 5.3 cm LV Systolic Diameter PLAX 4.0 cm IVS Diastolic Thickness 1.1 cm 0.6 - 1.0 / 0.6 - 0.9 cm LVPW Diastolic Thickness 1.1 cm 0.6 - 1.0 / 0.6 - 0.9 cm LV Relative Wall Thickness 0.4 RV Internal Dim ED PLAX 3.6 cm LA Systolic Diameter LX 4.4 cm 3.0 - 4.0 / 2.7 - 3.8 cm LV Diastolic Volume MOD 4C 110.5 cm??? LV Systolic Volume MOD 4C 56.0 cm??? LV Ejection Fraction MOD 4C 49.4 % LV Cardiac Index MOD 4C 1327.6 cm???/min???m??? LV Diastolic Length 4C 9.0 cm LV Systolic Length 4C 7.3 cm LV Diastolic Volume MOD 2C 140.9 cm??? LV Systolic Volume MOD 2C 64.0 cm??? LV Ejection Fraction MOD 2C 54.5 % LV Cardiac Index MOD 2C 1869.0 cm???/min???m??? LV Diastolic Length 2C 9.2 cm LV Systolic Length 2C 7.2 cm LA Volume 85.8 cm??? 18 - 58 / 22 - 52 cm??? LA Volume Index 30.3 cm???/m??? 16 - 28 cm???/m??? M-MODE Aortic Root Diameter MM 3.6 cm MV E Point Septal Separation 1.3 cm AV Cusp Separation MM 2.8 cm DOPPLER AV Peak Velocity 184.9 cm/s AV Peak Gradient 13.7 mmHg AV Mean Velocity 136.1 cm/s AV Mean Gradient 8.7 mmHg AV Velocity Time Integral 45.2 cm MV Area PHT 2.8 cm??? Mitral E Point Velocity 111.0 cm/s Mitral A Point Velocity 99.5 cm/s Mitral E to A Ratio 1.1 MV Deceleration Time 269.1 ms MV E' Velocity 9.4 cm/s Mitral E to MV E' Ratio 11.8 TR Peak Velocity 252.3 cm/s TR Peak Gradient 25.5 mmHg Right Ventricular Systolic Press 30.5 mmHg FINDINGS Left Ventricle Left ventricular ejection fraction is estimated at 50-55 %. Mild concentric LVH. Basal inferolateral wall hypokinesia Right Ventricle Mild right ventricular dilatation. Right ventricular systolic pressure within normal limits. Right Atrium Normal right atrial size. Left Atrium Moderately increased left atrial diameter. Mildly increased left atrial volume. Mildly increased left atrial area. Mitral Valve Structurally normal mitral valve. No mitral stenosis, regurgitation or prolapse. Aortic Valve Trileaflet aortic valve. No aortic valve stenosis or regurgitation. Tricuspid Valve Structurally normal tricuspid valve. Trace to mild tricuspid regurgitation. Pulmonic Valve Pulmonic valve not well visualized. Pericardium No pericardial effusion. Aorta Normal size aortic root and proximal ascending aorta. CONCLUSIONS Left ventricular ejection fraction is estimated at 50-55 %. Mild concentric LVH. Basal inferolateral wall hypokinesia. Right ventricular systolic pressure within normal limits. No pericardial effusion. Previewed by: Dr Chuck Guerrero (Electronically Signed) Final Date: 07 June 2023 10:14
== END | disposition home or self-care (01) ==
LOC: RADECHMAIN 16:02
PROVIDERS: ATTEND Family Medicine
DX: R07.9 Chest pain, unspecified (principal)
CPT/HCPCS: 93306

== ENCOUNTER → 2024-05-15 | Outpatient (CLI) | payer OTHER ==
--- NOTE | 2024-05-16 07:17 | MM ---
Reason for Exam: Screening (asymptomatic). Last mammogram was performed 4 year(s) and 0 month(s) ago. Patient History: Menarche at age 12. First Full-Term at age 24. Hysterectomy at age 43. Postmenopausal. Patient has history of breast feeding. Risk Values: Indira 5 year model risk: 1.3%. NCI Lifetime model risk: 9.1%. Prior Study Comparison: 10/10/2015 Screening Mammogram, Unknown. 12/23/2017 Bilateral Screening Mammogram, [facility]. 05/27/2020 Bilateral Screening Mammogram, [facility]. Tissue Density: The breasts are almost entirely fatty. Findings: Analyzed By CAD. Right breast: There is no suspicious group of microcalcifications or new suspicious mass. Left breast: There is no suspicious group of microcalcifications or new suspicious mass. Overall Assessment: Negative, BI-RAD 1 Management: Screening Mammogram of both breasts in [address] [facility] will attempt to contact patient to return for supplemental views and ultrasound if indicated. Patient should continue monthly self-breast exams. A clinical breast exam by your physician is recommended on an annual basis. This exam should not preclude additional follow-up of suspicious palpable abnormalities. Note on Indira scores and lifetime risk: 1. A Indira score greater than 3% is considered moderate risk. If this is the case, consider specialist referral to assess eligibility for a risk reducing agent. 2. If overall lifetime risk for the development of breast cancer is 20% or higher, the patient may qualify for future screening with alternating mammogram and breast MRI. [facility], , 05/16/2024 7:14 AM. Electronically signed and approved by: Charly Black DO
== END | disposition home or self-care (01) ==
LOC: RADMAMWWP 15:17
PROVIDERS: ATTEND Family Medicine
DX: Z12.31 Encounter for screening mammogram for malignant neoplasm of breast (principal); Z78.0 Asymptomatic menopausal state; R92.313 Mammographic fatty tissue density, bilateral breasts
CPT/HCPCS: 77067

== ENCOUNTER → 2024-07-20 | Outpatient (CLI) | payer MEDICARE, OTHER ==
--- NOTE | 2024-07-20 14:04 | US ---
EXAMINATION TYPE: US thyroid st tissue head/neck DATE OF EXAM: 07/20/2024 COMPARISON: NONE CLINICAL INDICATION: Female, 54 years old with history of E04.9 NONTOXIC GOITER, UNSPECIFIED; TECHNIQUE: Grayscale and color Doppler imaging of the thyroid gland. FINDINGS: GLAND SIZE: Right Lobe: 5.4 x 1.4 x 2.3 cm Overall Parenchyma: mildly heterogeneous Left Lobe: 4.5 x 1.5 x 2.1 cm Overall Parenchyma: mildly heterogeneous Isthmus Thickness: 0.4 cm NODULES RIGHT: # of nodules measured on right: 0 LEFT: # of nodules measured on left: 0 ISTHMUS: # of nodules measured in the isthmus: 0 Bilateral neck scanned, no evidence of lymphadenopathy. Fairly homogeneous normal-sized thyroid without suspicious nodule. IMPRESSION: Unremarkable study . 2017 ACR TI-RADS LEVEL: TI-RADS 1 - BENIGN: No FNA *Highest TI-RADS level nodule reported [email or web address] [facility], , 07/20/2024 2:02 PM
== END | disposition home or self-care (01) ==
LOC: RADUSWWP 13:28
PROVIDERS: ATTEND Family Medicine
DX: E04.9 Nontoxic goiter, unspecified (principal)
CPT/HCPCS: 76536